=== PATIENT | female | born 1960 | race Caucasian/White ===

== ENCOUNTER → 2023-08-11 19:12 | Outpatient (REF) | payer BC, SELFPAY | LOC: WDC 19:12 | PROVIDERS: ATTENDING PHYSICIAN Family Medicine | DX: Z12.31 Encounter for screening mammogram for malignant neoplasm of breast (principal) | CPT/HCPCS: 77063; 77067 ==

== ENCOUNTER → 2023-11-02 06:50 | Outpatient (REF) | payer BC, SELFPAY ==
[2023-11-02 07:46] LABS: % Basophils 0.5 % (0-2); % Eosinophils 4.1 % (0-6); % Immature Granulocytes 0.5 % (0-0.5); % Lymphocytes 15.5 % (20.5-51.1); % Monocytes 7.2 % (1.7-9.3); % Neutrophils 72.2 % (42.2-75.2); Absolute Eosinophils 0.2 10^3/uL (0-0.7); Absolute Lymphocytes 0.9 10^3/uL (1.2-3.4); Absolute Monocytes 0.4 10^3/uL (0.1-0.6); Absolute Neutrophils 4.2 10^3/uL (1.4-6.5); Hematocrit 32.7 % (37.0-47.0); Hemoglobin 10.8 g/dL (12.0-16.0); Mean Corpuscular Hgb 29.3 pg (27.0-31.0); Mean Corpuscular Volume 88.9 fL (81.0-99.0); Mean Platelet Volume 10.2 fL (7.4-10.4); Nucleated Red Blood Cells % 0 %; Platelet Count 209 10^3/uL (130-400); Red Blood Cell Count 3.68 10^6/uL (4.20-5.40); Red Cell Dist. Width 13.2 % (11.5-14.5); White Blood Cell Count 5.8 10^3/uL (4.8-10.8)
[2023-11-02 09:12] LABS: ALT (SGPT) 30 U/L (0-35); AST (SGOT) 25 U/L (14-36); Albumin 4.1 g/dl (3.5-5.0); Alkaline Phosphatase 97 U/L (38-126); Blood Urea Nitrogen 22 mg/dl (7-17); Carbon Dioxide 30 mmol/L (22-30); Chloride 101 mmol/L (98-107); Glucose 110 mg/dl (70-99); Potassium 3.8 mmol/L (3.5-5.1); Sodium 136 mmol/L (135-145); Total Bilirubin 0.9 mg/dl (0.2-1.3); Total Protein 6.9 g/dl (6.3-8.2); eGFR > 60.00
[2023-11-02 20:02] LABS: CA 125 < 5.5 U/mL (0-35)
== END ==
LOC: REG 06:50
PROVIDERS: ATTENDING PHYSICIAN Obstetrics & Gynecology Gynecologic Oncology
DX: C54.1 Malignant neoplasm of endometrium (principal); C55 Malignant neoplasm of uterus, part unspecified
CPT/HCPCS: 36415; 80053; 85025; 86304

== ENCOUNTER → 2023-11-10 07:32 | Outpatient (REF) | payer BC, SELFPAY | LOC: RAD 07:32 | PROVIDERS: ATTENDING PHYSICIAN Obstetrics & Gynecology Gynecologic Oncology; FAMILY PHYSICIAN Family Medicine | DX: C54.1 Malignant neoplasm of endometrium (principal) | CPT/HCPCS: 71260; 74177; Q9967 ==

== ENCOUNTER 2024-05-23 10:03 | Emergency (ER) | payer BC, SELFPAY ==
[2024-05-23 10:15] VITALS: BP 181/79
[2024-05-23 10:57] VITALS: BP 153/79
[2024-05-23 11:00] VITALS: BP 165/70
[2024-05-23 11:21] LABS: % Basophils 0.3 % (0-2); % Immature Granulocytes 0.3 % (0-0.5); % Lymphocytes 10.5 % (20.5-51.1); % Monocytes 5.6 % (1.7-9.3); % Neutrophils 80.3 % (42.2-75.2); Absolute Eosinophils 0.2 10^3/uL (0-0.7); Absolute Lymphocytes 0.7 10^3/uL (1.2-3.4); Absolute Monocytes 0.4 10^3/uL (0.1-0.6); Absolute Neutrophils 5.3 10^3/uL (1.4-6.5); Hemoglobin 10.4 g/dL (12.0-16.0); Mean Corp Hgb Conc. 31.5 g/dL (33.0-37.0); Mean Corpuscular Hgb 27.9 pg (27.0-31.0); Mean Corpuscular Volume 88.5 fL (81.0-99.0); Mean Platelet Volume 10.1 fL (7.4-10.4); Nucleated Red Blood Cells % 0 %; Platelet Count 201 10^3/uL (130-400); Red Blood Cell Count 3.73 10^6/uL (4.20-5.40); Red Cell Dist. Width 13.5 % (11.5-14.5); White Blood Cell Count 6.6 10^3/uL (4.8-10.8)
--- NOTE | 2024-05-23 11:35 | ED.GENMED ---
History of Present Illness
General
Chief Complaint: Chest Pain
Source: patient
Exam Limitations: none
Time Seen by Provider: 05/23/24 10:59
Nursing documentation reviewed up to this point in time: agreed with
History of Present Illness
History of Present Illness:
63-year-old female with history of HTN, colitis presents for shortness of breath, chest pain and pain in the arm. States 4 days ago while she was laying on her chair at home she developed right upper wall pain right below her clavicle and at the
same time she felt pain down her right arm. She had just eaten fried food so she thought it was indigestion and she took omeprazole with some relief. The right arm pain dissipated over the next 2 days and has not returned. The right upper chest
pain is reproducible with pressing on it.
She states she has had 'breathing problems' for the past 2 weeks the symptoms are similar to her chronic sinusitis with wheezing and she has been using Claritin and nasal spray as usual
States she had one episode of numb feeling left hand the same time the right upper chest pain started but this lasted only a short time that day and none since
Patient denies N/B/D. She has chronic intermittent diarrhea since her gastric bypass in 2016 and this has not changed
She denies dizziness, lightheadedness.
Past History
Past History
ED Past Medical History: HTN, NIDDM and Other (Frequent epistaxis)
ED Past Surgical History: Gynecological, Orthopedic and Other (Gastric bypass 2015)
Social History
Tobacco: Non-smoker
Alcohol: None
Drug: None
Personal: Other (Noncontributory)
Living: with family
Employment: Employed
Family History
Family History: Other
Review of Systems
Review of Systems
Allergies reviewed?: Yes
All Other Systems: ROS reviewed and negative except as documented in HPI and ROS
Constitutional: Denies fever, fatigue or chills
Respiratory: Reports other (Intermittent wheezing for the past 2 weeks she's had in the past and feels is related to her chronic sinusitis); Denies cough or trouble breathing
Cardiac: Reports chest pain (Right upper chest wall pain); Denies diaphoresis or palpitations
ABD/GI: Reports diarrhea (Intermittent since gastric bypass); Denies abdominal pain, nausea, vomiting, bloody stools or black stools
: Denies dysuria, incontinence, difficulty voiding or urgency
Musculoskeletal: Denies edema
Skin: Reports no symptoms
Neurological: Reports no symptoms
Phy Exam
Physical Exam
Physical Exam:
GENERAL: No acute distress. A&Ox3.
CONSTITUTIONAL: Afebrile.
EYES: clear, conjunctivae normal
ENMT: moist mucus membranes, Pharynx nl
RESPIRATORY: Regular respirations, nonlabored, lungs clear.
CARDIOVASCULAR: Regular rate and rhythm, no murmurs, no rubs. R upper chest pain immediately reproducible with pressing on area
GI: Soft, nontender, normal BS
MUSCULOSKELETAL: Moves with ease. Well perfused.
SKIN: Warm, dry, pink
PSYCH: Normal mood and affect. Well kept, interactive and appropriate
NEUROLOGIC: Awake, alert and oriented. No focal neurological deficits
Scores
Heart Score for Chest Pain Patients
STEMI patient?: Not applicable
Course
Orders/Labs/Results
Orders:
Orders
05/23/24 10:04
Electrocardiogram (*1) Urgent
Reason for Study: Chest Pain
EKG- Treatment ONCE
05/23/24 11:00
CR Chest - 2 Views Urgent
Comment:
Reason For Exam: chest pain, SOB
05/23/24 11:13
Complete Blood Count/With Diff Urgent
Comprehensive Metabolic Panel Urgent
NT-proBNP Urgent
Troponin I Urgent
Abnormal Lab Results
05/23/24
11:13
RBC 3.73 L 10^6/uL
(4.20-5.40)
Hgb 10.4 L g/dL
(12.0-16.0)
Hct 33.0 L %
(37.0-47.0)
MCHC 31.5 L g/dL
(33.0-37.0)
Absolute Lymphs (auto) 0.7 L 10^3/uL
(1.2-3.4)
Neutrophils % 80.3 H %
(42.2-75.2)
Lymphocytes % 10.5 L %
(20.5-51.1)
BUN 21 H mg/dl
(7-17)
Glucose 128 H mg/dl
(70-99)
AST 38 H U/L
(14-36)
ALT 36 H U/L
(0-35)
05/23/24 11:13
05/23/24 11:13
Vital Signs
Initial and Last Documented VS:
Initial Vital Signs
Temp Pulse Resp BP Pulse Ox
98.0 F 69 20 181/79 98
05/23/24 10:15 05/23/24 10:15 05/23/24 10:15 05/23/24 10:15 05/23/24 10:15
Last Documented Vital Signs
Temp Pulse Resp BP Pulse Ox
98.0 F 71 20 165/70 97
05/23/24 10:15 05/23/24 12:00 05/23/24 12:00 05/23/24 11:00 05/23/24 12:00
MDM/Problems Addressed
Differential Diagnosis Includes:
GERD, [place], musculoskeletal chest wall pain, CHF
MDM/Problems Addressed:
63-year-old female with history of HTN, colitis presents for shortness of breath, chest pain and pain in the arm. States 4 days ago while she was laying on her chair at home she developed right upper wall pain right below her clavicle and at the
same time she felt pain down her right arm. She had just eaten fried food so she thought it was indigestion and she took omeprazole with some relief. The right arm pain dissipated over the next 2 days and has not returned. The right upper chest
pain is reproducible with pressing on it.
She states she has had 'breathing problems' for the past 2 weeks the symptoms are similar to her chronic sinusitis with wheezing and she has been using Claritin and nasal spray as usual
States she had one episode of numb feeling left hand the same time the right upper chest pain started but this lasted only a short time that day and none since
Patient denies N/B/D. She has chronic intermittent diarrhea since her gastric bypass in 2016 and this has not changed
She denies dizziness, lightheadedness.
Afebrile, NAD
Right upper chest wall pain immediately reproducible with pressing on the area locally
Pt has no risk factors for PE, no indication for PE workup
12:00 p.m.
CBC: No clinically significant abnormality
CMP: No clinically significant abnormality
Troponin WNL
BMP WNL
Chest x-ray radiology report read: NAD
Pt stable for discharge.
Referred to cardiac hotline
Chronic conditions affecting care: HTN
*Critical Care Note
Total Time (30-74mins, 75-104mins- exclusive of procedures): Not Applicable
ED Attending Note
-
Portions of this chart may have been created with voice recognition software.� Occasional wrong word or��sound alike� substitutions may have occurred due to the inherent limitations of voice recognition software.
Discharge Plan
Departure
Patient Disposition: Home (Routine Discharge)
Date of Disposition: 05/23/24
Time of Disposition: 12:02
Patient with high blood pressure during this ER visit?: No
Condition: Good
Discharge Problem:
Atypical chest pain, Seasonal allergies
Instructions: Chest Pain That Is Not Caused by the Heart (DC), Acid Reflux and GERD in Adults (DC), Chest Pain CBC Follow Up
Prescriptions:
No Action
multivitamin 1 EACH tablet
1 ea PO DAILY
omeprazole 40 MG capsule,delayed release(DR/EC)
40 mg PO DAILY PRN (Reason: heartburn)
hydrochlorothiazide 25 MG tablet
25 mg PO DAILY
lisinopril 40 MG tablet
10 mg PO DAILY
temazepam 22.5 MG capsule
22.5 mg PO HS
ergocalciferol (vitamin D2) 50 MCG tablet
50 mcg PO WEEKLY
Citalopram Hydrobromide
40 mg PO DAILY
Loratadine
10 mg PO DAILY
oxymetazoline [Afrin Sinus (oxymetazoline)] 30 SPRAYS/15 ML spray,non-aerosol
2 sprays intranasal Q4HPRN PRN (Reason: Bleeding) Qty: 1 1RF
sodium chloride [Saline Nasal] 50 SPRAYS/45 ML aerosol,spray
2 sprays intranasal QIDPRN PRN (Reason: Dryness) Qty: 1 1RF
Referrals:
Marleen Meneses MD [Family Provider] -
Marleen Daly, OPTICIAN APPRENTICE [Non-Admitting Privileges] - As needed
Alexandre Rodarte MD [Active] - Keep scheduled appt
Activity Restrictions/Additional Instructions:
As we discussed, there is nothing worrisome in your workup here today.
Your anemia is at your baseline.
Someone from the cardiology group will call you in the next day or 2 more thorough cardiac evaluation.
Your lungs are clear, no wheezing at this time, your intermittent wheezing is probably like you said, from your chronic sinusitis/seasonal allergies. Continue your nasal spray, your humidifier and your Claritin daily.
Return here immediately for worsening chest pain, chest pain associated with breaking out in sweat, lightheadedness, shortness of breath, nausea or feeling worse in any way.
Interventions
Interventions:
*Risk Screen - Suicide Last Done: 05/23/24 11:26
*General Assessment Last Done: 05/23/24 12:21
*Neglect/Abuse Screening Last Done: 05/23/24 11:26
ED- Fall Risk Assessment Last Done: 05/23/24 11:26
*ED COVID-19 Vaccine History Last Done: 05/23/24 11:26
*Nursing Disposition Last Done: 05/23/24 12:22
ED- Cardiac Assessment Last Done: 05/23/24 11:26
ED- Pulmonary Assessment Last Done: 05/23/24 11:26
Discharge Date and Time
Discharge Date/Time: 05/23/24 12:23
Print Language: PUERTO RICAN
[2024-05-23 11:39] LABS: ALT (SGPT) 36 U/L (0-35); AST (SGOT) 38 U/L (14-36); Albumin 4.2 g/dl (3.5-5.0); Alkaline Phosphatase 80 U/L (38-126); Blood Urea Nitrogen 21 mg/dl (7-17); Calcium 8.9 mg/dl (8.4-10.2); Carbon Dioxide 30 mmol/L (22-30); Chloride 98 mmol/L (98-107); Glucose 128 mg/dl (70-99); Potassium 3.7 mmol/L (3.5-5.1); Sodium 140 mmol/L (135-145); Total Bilirubin 1.1 mg/dl (0.2-1.3); Total Protein 6.9 g/dl (6.3-8.2); eGFR > 60.00
[2024-05-23 11:48] LABS: NT-proBNP 177 pg/ml; Troponin I < 0.012 ng/ml
== END 2024-05-23 12:23 | disposition home or self-care (01) ==
LOC: EMR 10:03
PROVIDERS: Registered Nurse; EMERGENCY PHYSICIAN Student in an Organized Health Care Education/Training Program; FAMILY PHYSICIAN Family Medicine
DX: J30.2 Other seasonal allergic rhinitis (principal); R07.89 Other chest pain; E11.9 Type 2 diabetes mellitus without complications; I10 Essential (primary) hypertension
CPT/HCPCS: 99284; 71046; 80053; 83880; 84484; 85025; 93005

== ENCOUNTER → 2024-06-20 06:26 | Outpatient (REF) | payer BC, SELFPAY ==
[2024-06-20 07:10] LABS: % Basophils 0.5 % (0-2); % Immature Granulocytes 0.7 % (0-0.5); % Lymphocytes 10.9 % (20.5-51.1); % Monocytes 4.3 % (1.7-9.3); % Neutrophils 81.6 % (42.2-75.2); Absolute Eosinophils 0.2 10^3/uL (0-0.7); Absolute Immature Granulocytes 0.1 10^3/uL (0-0.05); Absolute Lymphocytes 0.8 10^3/uL (1.2-3.4); Absolute Monocytes 0.3 10^3/uL (0.1-0.6); Hematocrit 29.7 % (37.0-47.0); Hemoglobin 9.5 g/dL (12.0-16.0); Mean Corpuscular Hgb 28.1 pg (27.0-31.0); Mean Corpuscular Volume 87.9 fL (81.0-99.0); Nucleated Red Blood Cells % 0 %; Platelet Count 227 10^3/uL (130-400); Red Blood Cell Count 3.38 10^6/uL (4.20-5.40); Red Cell Dist. Width 14.8 % (11.5-14.5); White Blood Cell Count 7.4 10^3/uL (4.8-10.8)
[2024-06-20 08:01] LABS: ALT (SGPT) 24 U/L (0-35); AST (SGOT) 25 U/L (14-36); Albumin 4.3 g/dl (3.5-5.0); Alkaline Phosphatase 97 U/L (38-126); Blood Urea Nitrogen 13 mg/dl (7-17); Calcium 9.1 mg/dl (8.4-10.2); Carbon Dioxide 26 mmol/L (22-30); Chloride 102 mmol/L (98-107); Glucose 121 mg/dl (70-99); HDL Cholesterol 55 mg/dl; LDL Cholesterol, Calculated 80 mg/dl; Sodium 141 mmol/L (135-145); Total Bilirubin 1.1 mg/dl (0.2-1.3); Total Cholesterol 149 mg/dl (50-199); Total Protein 7.2 g/dl (6.3-8.2); Triglyceride 73 mg/dl (10-149); Very Low Density Lipoprotein 14 mg/dl (0-30); eGFR > 60.00
[2024-06-20 08:13] LABS: Potassium 3.7 mmol/L (3.5-5.1)
[2024-06-20 08:32] LABS: TSH Reflex To Free T4 1.68 uIU/ml (0.47-4.68)
[2024-06-20 20:35] LABS: CA 125 < 5.5 U/mL (0-35)
== END ==
LOC: REG 06:26
PROVIDERS: ATTENDING PHYSICIAN Obstetrics & Gynecology Gynecologic Oncology; FAMILY PHYSICIAN Family Medicine
DX: D50.9 Iron deficiency anemia, unspecified (principal); D64.9 Anemia, unspecified; E53.8 Deficiency of other specified B group vitamins; I10 Essential (primary) hypertension; E66.01 Morbid (severe) obesity due to excess calories; E78.00 Pure hypercholesterolemia, unspecified; D50.8 Other iron deficiency anemias
CPT/HCPCS: 36415; 80053; 80061; 84443; 85025; 86304

== ENCOUNTER → 2025-01-09 06:21 | Outpatient (REF) | payer BC, SELFPAY ==
[2025-01-09 07:43] LABS: Hematocrit 29.3 % (37.0-47.0); Hemoglobin 8.9 g/dL (12.0-16.0); Mean Corp Hgb Conc. 30.4 g/dL (33.0-37.0); Mean Corpuscular Volume 78.3 fL (81.0-99.0); Nucleated Red Blood Cells % 0 %; Platelet Count 269 10^3/uL (130-400); Red Cell Dist. Width 16.1 % (11.5-14.5)
[2025-01-09 08:47] LABS: ALT (SGPT) 18 U/L (0-35); AST (SGOT) 16 U/L (14-36); Albumin 4.3 g/dl (3.5-5.0); Alkaline Phosphatase 96 U/L (38-126); Blood Urea Nitrogen 17 mg/dl (7-17); Calcium 9.1 mg/dl (8.4-10.2); Carbon Dioxide 26 mmol/L (22-30); Chloride 105 mmol/L (98-107); Glucose 102 mg/dl (70-99); Potassium 3.4 mmol/L (3.5-5.1); Sodium 140 mmol/L (135-145); Total Protein 7.3 g/dl (6.3-8.2); eGFR > 60.00
[2025-01-09 18:46] LABS: CA 125 < 5.5 U/mL (0-35)
== END ==
LOC: REG 06:21
PROVIDERS: ATTENDING PHYSICIAN Physician Assistant Surgical; FAMILY PHYSICIAN Family Medicine
DX: D50.9 Iron deficiency anemia, unspecified (principal); D64.9 Anemia, unspecified; E53.8 Deficiency of other specified B group vitamins; C54.1 Malignant neoplasm of endometrium
CPT/HCPCS: 36415; 80053; 85025; 86304

== ENCOUNTER → 2025-01-11 13:21 | Outpatient (REF) | payer BC, SELFPAY ==
[2025-01-11 14:24] LABS: Hematocrit 28.1 % (37.0-47.0); Hemoglobin 8.5 g/dL (12.0-16.0); Mean Corp Hgb Conc. 30.2 g/dL (33.0-37.0); Mean Corpuscular Volume 78.7 fL (81.0-99.0); Nucleated Red Blood Cells % 0 %; Platelet Count 224 10^3/uL (130-400); Red Cell Dist. Width 15.9 % (11.5-14.5)
[2025-01-11 15:52] LABS: Iron 32 ug/dl (37-170)
[2025-01-11 16:03] LABS: Total Iron Binding Capacity 434 ug/dl (265-497)
[2025-01-11 16:22] LABS: Ferritin 5.6 ng/ml (11.1-264.0)
[2025-01-11 16:53] LABS: Folate 6.7 ng/ml (2.76-20); Vitamin B12 291 pg/ml (239-931)
== END ==
LOC: REG 13:21
PROVIDERS: ATTENDING PHYSICIAN Obstetrics & Gynecology Gynecologic Oncology; FAMILY PHYSICIAN Family Medicine; OTHER PHYSICIAN Internal Medicine Hematology & Oncology
DX: C54.1 Malignant neoplasm of endometrium (principal); D50.9 Iron deficiency anemia, unspecified; D64.9 Anemia, unspecified; E53.8 Deficiency of other specified B group vitamins
CPT/HCPCS: 36415; 82607; 82728; 82746; 83540; 83550; 85025

== ENCOUNTER 2025-01-20 20:21 | Inpatient (IN) | payer BC, SELFPAY ==
[2025-01-20 20:24] VITALS: BP 123/50
[2025-01-20 20:56] VITALS: BMI 41.7
[2025-01-20 20:58] LABS: Hematocrit 23.1 % (37.0-47.0); Hemoglobin 7.0 g/dL (12.0-16.0); Mean Corp Hgb Conc. 30.3 g/dL (33.0-37.0); Mean Corpuscular Volume 78.3 fL (81.0-99.0); Nucleated Red Blood Cells % 0 %; Platelet Count 280 10^3/uL (130-400); Red Cell Dist. Width 16.0 % (11.5-14.5)
[2025-01-20 21:00] VITALS: BP 110/70
[2025-01-20 21:12] LABS: ALT (SGPT) 17 U/L (0-35); AST (SGOT) 16 U/L (14-36); Albumin 3.6 g/dl (3.5-5.0); Alkaline Phosphatase 87 U/L (38-126); Blood Urea Nitrogen 22 mg/dl (7-17); Calcium 8.3 mg/dl (8.4-10.2); Carbon Dioxide 22 mmol/L (22-30); Chloride 106 mmol/L (98-107); Estimated Creatinine Clearance 87 ml/min; Glucose 228 mg/dl (70-99); Potassium 3.5 mmol/L (3.5-5.1); Sodium 134 mmol/L (135-145); Total Protein 6.2 g/dl (6.3-8.2); eGFR > 60.00
[2025-01-20 21:21] LABS: Troponin I < 0.012 ng/ml
[2025-01-20] MEDS: NSS 500 IV (21:25)
[2025-01-20 21:45] VITALS: BP 116/44
[2025-01-20 22:30] VITALS: BP 125/65
--- NOTE | 2025-01-20 22:36 | ED.GENMED ---
History of Present Illness
General
Chief Complaint: Fainting/Passed Out
Source: patient
Time Seen by Provider: 01/20/25 20:22
History of Present Illness
History of Present Illness:
Note:
CHIEF COMPLAINT(S)
Recurrent nosebleeds and black stools.
HISTORY OF PRESENT ILLNESS
The patient is a 64-year-old female who presented with recurrent nosebleeds that began around 2:00 PM today and have persisted since. She suspects that the nosebleeds might be related to her iron levels, as she experiences worsened bleeding when her
iron is high due to dietary intake. The patient has a history of nasal septum destruction attributed to chemical exposure and allergies, not drug use. She reported that due to the destruction of the septum, she has severe nosebleeds that are
difficult to control, with this episode being particularly severe.
The nosebleeds started while she was working and resulted in throwing up blood and black stools, indicating possible swallowed blood. The patient describes feeling lightheaded afterward. She mentioned recent lab results indicating low hemoglobin
(8.4 g/dL previously; now suspected to be lower), and she has a history of iron deficiency.
During the episode, she became dizzy, fell, and injured her left knee, which is artificial. This fall exacerbated her knee pain. The patient mentioned having had a femur replacement in the past due to a significant fall on the same knee. There is
concern for further injury, though further imaging is needed to evaluate the knee.
ADDITIONAL HISTORY OBTAINED FROM SOURCES OTHER THAN THE PATIENT
no pre-hospital care interventions such as CPR were initiated. The patient was discovered after approximately 40 minutes by a passerby, at which point she was conscious but too weak to rise due to her knee injury.
CHRONIC MEDICAL CONDITIONS SIGNIFICANTLY AFFECTING CARE
The patient has a history of iron deficiency. Hematological management is important due to recurrent bleeding and low hemoglobin levels. She also has an artificial left knee that has required surgical intervention previously, influencing her
mobility and raising suspicion for additional musculoskeletal injury.
PHYSICAL EXAM
General: The patient is alert but appears in mild distress due to pain and fatigue.
Skin: Warm, dry, with visible pallor associated with possible anemia.
Neck: Supple, trachea midline.
Eye Ears, nose, mouth, and throat: Oral mucosa appears pale, likely correlating with low hemoglobin. Evidence of nasal bleeding is present.
Cardiovascular: Normal peripheral perfusion, No edema.
Respiratory: Respirations are non-labored.
Gastrointestinal: Abdomen nondistended.
Back: Normal range of motion, Normal alignment.
Musculoskeletal: Moderate swelling and tenderness in the left knee, limited range of motion due to pain.
Neurological: Alert and oriented to person, place, time, and situation, No focal neurological deficit observed.
Psychiatric: Cooperative, appropriate mood & affect, although slightly anxious over her current health conditions.
PROBLEM LIST
Acute:
- Severe recurrent epistaxis
- Black stools secondary to nasal bleeding
- Severe left knee pain post-fall
Chronic:
- Iron deficiency anemia
PLAN
1. manage low hemoglobin and recurrent blood loss.
2. Orthopedic evaluation of the left knee, considering recent fall and history of femur replacement, including possible imaging (e.g., X-ray, MRI).
3. ENT follow-up to assess and potentially intervene in structural nasal issues contributing to severe nosebleeds, if possible.
4. Monitor hemoglobin levels and manage with appropriate iron supplementation and transfusion if necessary.
5. Pain management for knee injury.
DIFFERENTIAL DIAGNOSIS
The Differential Diagnosis includes, in no particular order and is not limited to:
1. Iron deficiency anemia
2. Hemophilia or other bleeding disorders
3. Nasal carcinoma
4. Platelet dysfunction
5. Peptic ulcer disease
6. Arteriovenous malformation
7. Autoimmune disorders
8. Epistaxis secondary to environmental exposure
9. Coagulopathy due to medication or systemic disease
10. Vascular issues related to artificial knee placement
EKG
My independent EKG interpretation is:
- Rhythm: Normal sinus rhythm
- Heart Rate: 68 bpm
- [place]: Normal
- Notable Intervals: Normal (no specific intervals noted as abnormal)
- Abnormalities Observed: No acute ischemic changes
Disposition:
SUMMARY OF ENCOUNTER
The patient is a 64-year-old female who presented to the emergency department following a syncopal event in the hospital bathroom. She has a history of recurrent severe nosebleeds, with the current episode starting at 2:00 PM. The patients
hemoglobin has dropped from 8.5 g/dL to 7 g/dL over the past week. Although hemodynamically stable, there is concern for further hemoglobin decrease, warranting serial measurements. An ENT consultation is suggested to evaluate the recurrent
nosebleeds. Knee imaging was performed due to a recent fall, showing no acute fractures. EKG is normal, and fluids were administered. A blood transfusion has been held off until repeat hemoglobin evaluations are completed.
DISPOSITION
Admit
ASSESSMENT
The patient is experiencing recurrent severe epistaxis likely due to nasal septum destruction and chronic iron deficiency anemia, further exacerbated by recent nosebleeds. The hemoglobin drop indicates continued blood loss. Serial monitoring and
potential ENT intervention are needed. The recent fall raised concerns for possible injuries, but imaging ruled out acute knee fractures.
PLAN
1. Monitor hemoglobin levels closely with serial measurements.
2. Consult with ENT for evaluation and management of recurrent nosebleeds.
3. Continue IV fluid administration as necessary to maintain hemodynamic stability.
4. Hold blood transfusion unless hemoglobin drops further or symptoms worsen.
5. Ensure patient safety precautions, considering recent syncopal episode and fall history.
INDEPENDENT REVIEW OF LABS AND INTERPRETATION OF TESTS
My independent review of CBC shows a hemoglobin level drop to 7 g/dL, indicating significant ongoing blood loss. My independent EKG interpretation is normal, confirming no acute ischemic changes.
MEDICAL DECISION MAKING
- Number and Complexity of Problems Addressed: Chronic conditions affecting care including iron deficiency anemia and recurrent epistaxis due to nasal septum destruction.
- Data:
- Category 1: Knee imaging reviewed with no acute fractures noted.
- Category 2: Clinical information obtained from ED records and lack of intervention before the emergency department visit.
- Category 3: Consideration for ENT consultation to manage severe recurrent nosebleeds.
- Risk: High risk due to significant drop in hemoglobin and ongoing severe epistaxis. Admission for observation is justified to manage potential complications due to further hemoglobin decrease and to facilitate ENT assessment.
DIAGNOSIS
1. Chronic iron deficiency anemia (ICD-10: D50.9)
2. Recurrent severe epistaxis (ICD-10: R04.0)
3. Fall with knee injury, no acute fracture (ICD-10: R29.6)
2322 update hemoglobin dropped to 6.2 will transfuse with 2 units of packed red blood cells. no further bleeding noted from the nose
Past History
Past History
ED Past Medical History: HTN, NIDDM and Other (Frequent epistaxis)
ED Past Surgical History: Gynecological, Orthopedic and Other (Gastric bypass 2015)
Social History
Tobacco: Non-smoker
Alcohol: None
Drug: None
Personal: Other (Noncontributory)
Living: with family
Employment: Employed
Family History
Family History: Other
Phy Exam
Physical Exam
Physical Exam:
.
Course
Orders/Labs/Results
Orders:
Orders
01/20/25 20:22
Electrocardiogram (*1) Urgent
Reason for Study: Chest Pain
Cardiac Monitoring- Treatment ONCE
EKG- Treatment ONCE
IV Insert/Care/Rem.- Treatment PRN
O2 Therapy [RESP] Urgent
Titrate/Wean O2 to maintain O2 sat greater than (%): 90
Special Instructions: Maintain sats >/=90%
Pulse Ox/spot Check [RESP] Urgent
Quantity: 1
Special Instructions: ON ROOM AIR
01/20/25 20:47
Type And Crossmatch [Type+Screen] Urgent
Complete Blood Count/With Diff Urgent
Comprehensive Metabolic Panel Urgent
Troponin I Urgent
01/20/25 21:17
0.9% Sodium Chloride 500 ml [Nss] 500 ml IV BOLUS
Knee, Left 4 or More Views [CR Knee - Left 4 Or More View*] Urgent
Comment:
Reason For Exam: fall
01/20/25 22:59
Pantoprazole [Protonix IV] 80 mg IV NOW STA
01/20/25 23:04
HGB [Hemoglobin] Urgent
01/20/25 23:21
* Blood Bank Products Urgent
Blood Bank Products: *Packed RBC Leuko(PRBC's)
Quantity: 2
Transfuse Today: Yes
Reason: Anemia
01/20/25 23:40
Admit/Transfer Patient As Directed
Co-Sign Provider:
Level of Care: Inpatient admission
Assign to:: Telemetry
Physician / Group: Beau
Diagnosis: Epistaxis
Reason for Telemetry: Other
Other Reason for Telemetry: bleeding
Date to Stop Telemetry: 01/22/25
Time to Stop Telemetry: 11:00
Reason for Hospitalization: symptomatic anemia
Expected length of stay greater than two midnights?: Yes
ELOS- Estimated Length of Stay in days: 2
I certify the patient meets the requirements for IP care: Yes
PRN Pain Medication Management As Directed
May give lesser potent ordered pain med per pt: Yes
preference::
Protocol:: Medication orders for pain may be administered in a
manner that supports deferring to patient preference
when the pt is:
- Requesting an ordered lesser potent pain medication.
Least to most potent pain medications are defined
as: acetaminophen < NSAID < tramadol < opioids
(morphine, oxycodone, hydromorphone).
- Requesting a lesser dose of the same medication IF
ORDERED.
- Requesting a less intrusive route of administration
if both routes are prescribed by the provider (PO <
IV).
01/20/25 23:41
Code Status As Directed
Resuscitation Status: Full Code
01/21/25 00:19
Acetaminophen [Tylenol] 1,000 mg PO NOW STA
Ondansetron Injectable [Zofran] 4 mg IV NOW STA
01/21/25 01:00
Flush (0.9% Sodium Chloride) [Flush (Nss)] See Dose Instructions IV PER PROTOCOL
01/21/25 01:11
Lactated Ringers [Lr] 1,000 ml IV 75 mls/hr
Ondansetron Injectable [Zofran] 4 mg IV Q6HPRN PRN
Oxymetazoline HCl [Afrin Nasal [place]] 2 sprays NASAL Q4HPRN PRN Bleeding
Saline Mist 2 drops NASAL QIDPRN PRN Dryness
01/21/25 01:11
Activity As Directed
Activity Level: With Assistance
INT (Intravenous Needle Therapy) As Directed
Comment: Place 2 IV catheters of the largest bore possible until stable
Orthostatic Vital Signs As Directed
Orthostatic VS Frequency: Daily
Orthostatic Vital Signs As Directed
Orthostatic VS Frequency: Now
Comment: then every four hours for twenty-four hours
Pneumatic Compression Sleeves As Directed
Type: Knee high
Vital Signs As Directed
Frequency: Per unit guidelines
DX Deep Vein Thrombosis Video Routine
01/21/25 Breakfast
NPO
Allow oral meds: Yes
Allow clear liquids: Sips of Clears
Basic Metabolic Panel IN AM
Complete Blood Count/No Diff IN AM
Iron IN AM
Total Iron Binding IN AM
01/21/25 08:00
Pantoprazole [Protonix IV] 40 mg IV BID
01/21/25 14:00
H&H Q8H
01/21/25 22:00
H&H Q8H
Temazepam [Restoril] 22.5 mg PO HS
01/22/25 11:00
DC Protocol for Telemetry ONCE
Abnormal Lab Results
01/20/25 01/20/25
20:47 23:04
WBC 13.4 H 10^3/uL
(4.8-10.8)
RBC 2.95 L 10^6/uL
(4.20-5.40)
Hgb 7.0 L g/dL 6.2 L* g/dL
(12.0-16.0) (12.0-16.0)
Hct 23.1 L %
(37.0-47.0)
MCV 78.3 L fL
(81.0-99.0)
MCH 23.7 L pg
(27.0-31.0)
MCHC 30.3 L g/dL
(33.0-37.0)
RDW 16.0 H %
(11.5-14.5)
MPV 10.5 H fL
(7.4-10.4)
Abs Immat Gran (auto) 0.1 H 10^3/uL
(0-0.05)
Absolute Neuts (auto) 10.8 H 10^3/uL
(1.4-6.5)
Absolute Monos (auto) 0.7 H 10^3/uL
(0.1-0.6)
Immature Gran % 0.9 H %
(0-0.5)
Neutrophils % 80.6 H %
(42.2-75.2)
Lymphocytes % 11.5 L %
(20.5-51.1)
Sodium 134 L mmol/L
(135-145)
BUN 22 H mg/dl
(7-17)
Glucose 228 H mg/dl
(70-99)
Calcium 8.3 L mg/dl
(8.4-10.2)
Total Protein 6.2 L g/dl
(6.3-8.2)
Crossmatch IS Only See Detail
01/20/25 23:04
01/20/25 20:47
Vital Signs
Initial and Last Documented VS:
Initial Vital Signs
Temp Pulse Resp Pulse Ox
97.9 F 68 18 95
01/20/25 20:22 01/20/25 20:22 01/20/25 20:22 01/20/25 20:22
Last Documented Vital Signs
Temp Pulse Resp BP Pulse Ox
97.7 F 69 16 131/60 95
01/21/25 01:48 01/21/25 01:48 01/21/25 01:48 01/21/25 01:48 01/21/25 01:48
*Pulse Oximetry
SaO2: 95
Oxygen Mode of Delivery: Room air
Patient hypoxic: no
*Equipment Maintenance Superintendent Interpretation
Rate: normal
Interpretation: normal
Rhythm: sinus
*Critical Care Note
Total Time (30-74mins, 75-104mins- exclusive of procedures): 35 minutes
ED Attending Note
-
Portions of this chart may have been created with voice recognition software.� Occasional wrong word or��sound alike� substitutions may have occurred due to the inherent limitations of voice recognition software.
Discharge Plan
Departure
Patient Disposition: Admit
Date of Disposition: 01/20/25
Time of Disposition: 22:36
Admit to: Telemetry
Presentation/result/management discussed w/ accepting MD/DO: Hospitalist
Discharge Problem:
Symptomatic anemia, Epistaxis, Syncope
Interventions
Interventions:
*Risk Screen - Suicide Last Done: 01/20/25 20:22
*General Assessment Last Done: 01/21/25 00:35
*Neglect/Abuse Screening Last Done: 01/20/25 20:22
*ED- Fall Risk Assessment Last Done: 01/21/25 00:35
*ED COVID-19 Vaccine History Last Done: 01/21/25 00:35
*Nursing Disposition Last Done: 01/21/25 00:35
ED- Cardiac Assessment Last Done: 01/20/25 20:58
ED- Neurological Assessment Last Done: 01/20/25 20:58
[2025-01-20] MEDS: PROTONIX IV 80 MG IV (23:04)
[2025-01-20 23:15] VITALS: BP 113/57
[2025-01-20 23:21] LABS: Hemoglobin 6.2 g/dL (12.0-16.0)
--- NOTE | 2025-01-20 23:30 | HPS.HSE ---
Family Physician
-
Family Physician: Marleen Meneses
Chief Complaint
-
Syncope
History of Present Illness
This is a 64-year-old with past medical history significant for hypertension, hyperlipidemia, GERD, depression, history of uterine cancer status post XRT chemo and surgery, status post gastric bypass who presents to the emergency department
following a syncopal episode.
Patient reported that she started having recurrent nosebleeds that began around 2 PM today and has persisted since. She reports that she has had history of nosebleeds associated with high dietary iron intake. She has a history of nasal septum
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 She is not on any blood thinners. Due to excessive nosebleed the patient was swallowing and also throwing up blood. She said that she has had black stools. She
reports dizziness and lightheadedness. She reports that she did fall and injured her knee. She was discovered at approximately 40 minutes after a fall by passerby. She reports that she was conscious but was too weak to get up due to knee injury.
She reports longstanding history of iron deficiency and anemia but denies any prior history of GI bleed. She reports that she has been on dietary iron supplementation but no oral iron supplementation. She was being followed for anemia and plans
for iron infusion prior to this episode of epistaxis and presyncopal.
In the emergency department initial blood pressure was 120/60 with a pulse of 71 and she was satting 98% on room air. Temp was nine 7.9.
White count was 7.4, hemoglobin was 7.0 (baseline was 9). Repeat hemoglobin was 6.2 with a platelet count of 280. Electrolytes were all normal.
Medical History
Past Medical History
Past Medical History: Reports Other
Additional Past Medical History:
Type 2 diabetes
Hyperlipidemia
Depression
GERD
Hypertension
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
Past Surgical History: Reports Other
Additional Past Surgical History:
Hysterectomy
Left knee replacement
Left femoral surgery
Gastric bypass
Robotic LAVH/BSO/LNS omental bx
Social History
Tobacco: Non-smoker
Alcohol: None
Drug: None
Family History
Family History: Not pertinent
Allergies / Home Medications
Allergies reflects when Allergies were last updated in [facility].
Home Medications with original date entered in [facility]
Allergy/Medication List:
Allergies
Allergy/AdvReac Type Severity Reaction Status Date / Time
'Kevin inhaler' Allergy NOSE BLEED Uncoded 01/20/25 20:21
Home Medications
Citalopram Hydrobromide 40 mg PO DAILY Depression 12/21/21
Loratadine 10 mg PO DAILY Allergies 12/21/21
ergocalciferol (vitamin D2) 50 mcg (2,000 unit) tablet 50 mcg PO WEEKLY Supplement 12/21/21
hydrochlorothiazide 25 mg tablet 25 mg PO DAILY Fluid retention/Swelling 12/21/21
lisinopril 40 mg tablet 10 mg PO DAILY Blood pressure 12/21/21
multivitamin 1 ea PO DAILY Supplement 12/21/21
omeprazole 40 mg capsule,delayed release 40 mg PO DAILY PRN heartburn 12/21/21
temazepam 22.5 mg capsule 22.5 mg PO HS Sleep 12/21/21
oxymetazoline 0.05 % nasal spray (Afrin Sinus (oxymetazoline)) 2 sprays intranasal Q4HPRN PRN Bleeding ##1 12/22/21
sodium chloride 0.65 % nasal spray aerosol (Saline Nasal) 2 sprays intranasal QIDPRN PRN Dryness ##1 12/22/21
Review of Systems
-
History Source: Patient
Constitutional: Reports No Symptoms
EENT: Reports Other (epistaxis)
Respiratory: Reports No Symptoms
Cardiac: Reports No Symptoms
Abdomen/GI: Reports No Symptoms
: Reports No Symptoms
Musculoskeletal: Reports No Symptoms
Skin: Reports No Symptoms
Neurological: Reports No Symptoms
Endocrine: Reports No Symptoms
Hematologic/Lymphatic: Reports No Symptoms
Psych: Reports No Symptoms
Physical Exam
Vital Signs
Vital Signs
Temp Pulse Resp BP Pulse Ox
97.9 F 71 15 125/65 98
01/20/25 20:22 01/20/25 22:45 01/20/25 22:45 01/20/25 22:30 01/20/25 22:45
Physical Exam
General: Well Developed, Well Nourished and No Apparent Distress
HEENT: NormoCephalic, Moist mucous membranes and Atraumatic
Respiratory: Clear
Cardiac: S1/S2 and Regular Rhythm; No Murmur or Rub
GI: Soft, Non Tender, Non Distended and Normal Bowel Sounds; No Organomegaly
Rectal: Black and Hem Positive
Musculoskeletal: No Clubbing, No Cyanosis and No Edema
Skin: No Rash
Neuro: Nonfocal/grossly intact
Laboratory Results
-
01/20/25 23:04
01/20/25 20:47
Laboratory Results
Total Bilirubin 0.6 mg/dl (0.2-1.3) 01/20/25 20:47
AST 16 U/L (14-36) 01/20/25 20:47
ALT 17 U/L (0-35) 01/20/25 20:47
Alkaline Phosphatase 87 U/L (38-126) 01/20/25 20:47
Troponin I < 0.012 ng/ml 01/20/25 20:47
Data Reviewed
-
Medical Tests (Nuc Med, Echo, EKG etc): Image Personally Visualized and interpreted
Lab Data: Labs Reviewed by me
Old Records: Reviewed
Impression/Plan
-
IMPRESSION:
Symptomatic epistaxis versus upper GI bleed. Hgb 6.2. HD stable. No thinners. While blood likely from epistaxis, cannot rule out GI bleed. Denies any abdominal pain but reported blood emesis suspect due to ingestion of blood. Heme + black
stool. Denies prior history of GI bleed. # Chronic anemia now has acute on chronic episode of symptomatic anemia. She did have a nosebleed for several hours prior to coming to the emergency department and likely drop in hemoglobin could be
secondary to the epistaxis.
PLAN:
Epistaxis/GI bleed - Nasal hemostasis achieved. Cannot rule out GI bleed.
- admit to telemetry
- npo for now
- PPI IV bid
- trend H&H q 8 hours, goal Hgb > 7
- Nasal sprays
- ENT consultation if recurrent nose bleed, patient reports that in the past she has been told that there is no available treatment for epistaxis.
- iron panel, consider IV iron supplementation if low
- holding lisinopril and hctz for now
- continue amlodipine
DVT PPX - SCD
Code status - Full cde
[2025-01-21] VITALS (15 sets, daily range): BP systolic 104–162; BP diastolic 57–89; PULSE 70–95; BMI 42.0
[2025-01-21] MEDS: TYLENOL 1000 MG PO (01:18)
[2025-01-21] MEDS: LR 1000 IV (03:58)
--- NOTE | 2025-01-21 05:01 | PTCARENOTE ---
Patient arrive on stretcher [facility] the help of a walker. Patient complained of pain in her left knee. No other complaint at this time voiced by the patient.
--- NOTE | 2025-01-21 06:38 | PTCARENOTE ---
after first unit of blood patient's BP increase to the 160's systolic. informed the RADIOLOGIC TECHNOLOGIST who told me to hold the fluid and to proceed in giving the second unit of RBC scheduled. After 2nd unit BP of the patient 140's Systolic.
[2025-01-21 06:53] LABS: Hematocrit 25.1 % (37.0-47.0); Hemoglobin 8.1 g/dL (12.0-16.0); Mean Corp Hgb Conc. 32.3 g/dL (33.0-37.0); Mean Corpuscular Volume 80.2 fL (81.0-99.0); Platelet Count 168 10^3/uL (130-400); Red Cell Dist. Width 16.8 % (11.5-14.5)
[2025-01-21 06:55] LABS: Blood Urea Nitrogen 23 mg/dl (7-17); Calcium 8.5 mg/dl (8.4-10.2); Carbon Dioxide 27 mmol/L (22-30); Chloride 104 mmol/L (98-107); Estimated Creatinine Clearance 102 ml/min; Glucose 168 mg/dl (70-99); Iron 63 ug/dl (37-170); Potassium 4.2 mmol/L (3.5-5.1); Sodium 135 mmol/L (135-145); eGFR > 60.00
[2025-01-21 07:04] LABS: Total Iron Binding Capacity 385 ug/dl (265-497)
--- NOTE | 2025-01-21 07:16 | W.PN.HOSP.TC ---
Addendum entered and electronically signed by Emily Cobb MD 01/21/25 16:28:
I saw and evaluated the patient independently. I reviewed the resident�s note and agree with findings and plan as documented by Dr. Perez.
GENERAL: well developed, well nourished, female in no apparent distress--pale appearing
HEENT: NC/AT
HEART: regular rate and rhythm, +S1, +S2
LUNGS : clear to auscultation bilaterally
ABDOM: soft, nontender, nondistended, + bowel sounds
EXT: no cyanosis, clubbing, or edema
NEUROLOGIC: grossly intact
Acute Symptomatic Anemia due to Epistaxis with Chronic Anemia--had nosebleed with swallowed blood--heme + but not worrisome, actually expected--s/p 2 units pRBC--will give 1 dose of IV iron--keep HGB > 7--if has another nosebleed, then consult
ENT--Continue PPI IV BID
Knee Pain S/p Fall due to syncope from symptomatic anemia--no fracture noted on x-ray--consult ortho, they want CT scan--Ordered PRN tylenol for Pain and Diclofenac Gel.
Essential Hypertension--Continue home meds as able
Hyperlipidemia--diet controlled?
Gastroesophageal Reflux Disease--Continue IV Pantoprazole
Depression--cont citalapram
History of Uterine Cancer s/p Chemo and Surgery--Encouraged follow up as needed
DVT proph
code status-- full code
Original Note:
Today's Communication/Plan
-
CT scan of left lower extremity today
Likely D/c tomorrow
Assessment / Plan
Assessment / Plan
Assessment:
This is a 64 y/o female with PMHX of frequent nose bleeds, left knee replacement, left hip replacement who presented to the ED on 01/20/2025 following a syncopal episode due to acute symptomatic anemia due to recurrent epistaxis and chronic anemia
(at baseline).
Plan:
Acute Symptomatic Anemia due to Epistaxis with Chronic Anemia
-Patient has not had a recurrence of her nosebleeds since yesterday prior to the ED.
-Stool Heme + likely due to swallowed blood
-S/p two units of leukocyte-reduced RBCs
-Continue PPI IV BID
-Continue to trend hemoglobin and hematocrit with goal to keep hemoglobin >7
-Ordered Ferric Gluconate Infusion
-Ordered Lactated Ringer�s IV fluids
-Continue home medications and home application of vaseline to nasal passages
-Consider ENT referral if patient experiences another episode
Knee Pain S/p Fall
-Fall secondary to Acute Symptomatic Anemia (See above)
-X-ray demonstrated moderate join effusion and soft tissue edema
-Ordered PRN tylenol for Pain and Diclofenac Gel.
-Consulted Orthopedics. Will appreciate their insight into her case
-Ordered CT scan left lower extremity to evaluate for fracture
Essential Hypertension
-Continue home meds on discharge
Hyperlipidemia
-Continue home meds on discharge
Gastroesophageal Reflux Disease
-Continue IV Pantoprazole
Depression
-Continue home meds on discharge
History of Uterine Cancer s/p Chemo and Surgery
-Encouraged follow up as needed
Anticipated Discharge: Within 24 hours
Subjective/Interval History
-
Date of Service: January 21, 2025
Today she reports she is doing well, though still has pain in her left knee. She informed me the last time this happened to her she had broken her left hip, and now has an artificial hip. She denies any recurrence of nosebleeds since prior to her
visit to the ED yesterday. She has been using ice on her knee with some relief in her pain. She states she doesn�t want to take stronger oral or IV pain medications, but would be willing to try topical pain relief methods.
She states that for her nosebleeds she normally uses Vaseline, nasal gels and nasal sprays. She does not have any personal family history of nose bleeds.
Objective Data
-
Labs:
Laboratory Results
01/20/25 01/20/25 01/21/25
20:47 23:04 06:15
WBC 13.4 H 10.7
Hgb 7.0 L 6.2 L* 8.1 L D
Hct 23.1 L 25.1 L
Plt Count 280 168 D
Sodium 134 L 135
Potassium 3.5 4.2
Chloride 106 104
Carbon Dioxide 22 27
BUN 22 H 23 H
Creatinine 0.7 0.6
Glucose 228 H 168 H
Calcium 8.3 L 8.5
Total Bilirubin 0.6
AST 16
ALT 17
Alkaline Phosphatase 87
01/21/25 01/21/25
14:00 22:00
WBC
Hgb Pending Pending
Hct Pending Pending
Plt Count
Sodium
Potassium
Chloride
Carbon Dioxide
BUN
Creatinine
Glucose
Calcium
Total Bilirubin
AST
ALT
Alkaline Phosphatase
Vital Signs:
Vital Signs
Temp Pulse Resp BP Pulse Ox
98 F 69 16 144/87 98
01/21/25 06:23 01/21/25 06:23 01/21/25 06:23 01/21/25 06:23 01/21/25 06:23
I&O
01/20/25 01/21/25 01/22/25
06:59 06:59 06:59
Intake Total 1000 / 1000
Balance 1000 / 1000
Review of Systems
-
History Source: Patient
EENT: Reports Bloody Nose (No recurrence since yesterday, chronic condition)
Respiratory: Denies Cough, Trouble Breathing or Wheezing
Cardiac: Denies Chest Pain or Palpitations
Abdomen/GI: Reports Black Stools; Denies Abdominal Pain, Nausea, Vomiting, Diarrhea, Constipated or Hematemesis
Musculoskeletal: Reports Joint Pain (Right knee, due to fall), Joint Swelling (Right knee, due to fall), Muscle Pain (Right knee area, due to fall) and Muscle Stiffness (Right knee, due to fall)
Neuro: Denies Dizzy, Headache, Weakness, Numbness, Ataxia, Tremors or Lightheadedness
Physical Exam
-
General: Well Developed, Well Nourished, No Apparent Distress, Comfortable and Morbidly Obese
HEENT: Normocephalic and Atraumatic
Respiratory: Clear to Auscultation
Cardiac: Regular Rhythm and S1/S2
GI: Soft, Nontender and Normal Bowel Sounds
Musculoskeletal: Edema, Left Lower Extrem (Overlying the knee with associated erythema. The skin is cold due to ice packs.)
Skin: Warm and Dry
Neuro: Awake, Alert and Oriented
Psych: Calm and Intact Judgement/Insight
[2025-01-21] MEDS: PROTONIX IV 40 MG IV ×2 (08:53→21:14)
--- NOTE | 2025-01-21 12:58 | CM ---
Chart reviewed and behavioral health case manager met with patient and patient lives alone her spouse about 2 years ago, patient lives in a one story home, no steps to enter, patient is independent with adl's and ambulation, no dme, patient drives,
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
PCP: Marleen Meneses
Pharmacy: [facility] in [place]
[2025-01-21 14:08] LABS: Hematocrit 25.5 % (37.0-47.0); Hemoglobin 8.3 g/dL (12.0-16.0)
[2025-01-21] MEDS: TYLENOL 650 MG PO (14:13)
[2025-01-21] MEDS: FERRLECIT 110 MG IV (15:30)
[2025-01-21] MEDS: LR IV (15:59)
[2025-01-21] MEDS: MORPHINE SULFATE 1 MG IV (21:15)
[2025-01-21] MEDS: RESTORIL 22.5 MG PO (21:17)
[2025-01-21 23:20] LABS: Hematocrit 22.4 % (37.0-47.0); Hemoglobin 7.5 g/dL (12.0-16.0)
[2025-01-22] VITALS (14 sets, daily range): BP systolic 107–155; BP diastolic 52–79; PULSE 69–86
[2025-01-22] MEDS: LR IV (03:27)
[2025-01-22] MEDS: MORPHINE SULFATE 1 MG IV (05:26)
--- NOTE | 2025-01-22 06:15 | PTCARENOTE ---
AAO x 3. VSS. Patient complains of 10/10 left knee pain. PRN IV morphine 1 mg administered x 2 and effective, per patient. Patient with large, bloody bowel movement x 2. Provider notified. Trending hemoglobin. OOB x 1 assist to bedside commode. Bed
in lowest position. All patient needs met. Call bob and personal belongings within reach.
[2025-01-22 06:19] LABS: Hematocrit 24.0 % (37.0-47.0); Hemoglobin 7.6 g/dL (12.0-16.0); Mean Corp Hgb Conc. 31.7 g/dL (33.0-37.0); Mean Corpuscular Volume 80.8 fL (81.0-99.0); Platelet Count 169 10^3/uL (130-400); Red Cell Dist. Width 17.1 % (11.5-14.5)
[2025-01-22 06:52] LABS: Blood Urea Nitrogen 19 mg/dl (7-17); Calcium 8.6 mg/dl (8.4-10.2); Carbon Dioxide 26 mmol/L (22-30); Chloride 107 mmol/L (98-107); Estimated Creatinine Clearance 102 ml/min; Glucose 140 mg/dl (70-99); Potassium 3.6 mmol/L (3.5-5.1); Sodium 137 mmol/L (135-145); eGFR > 60.00
--- NOTE | 2025-01-22 07:03 | W.PN.HOSP.TC ---
Addendum entered and electronically signed by Emily Cobb MD 01/22/25 14:03:
I saw and evaluated the patient independently. I reviewed the resident�s note and agree with findings and plan as documented by Dr. Perez.
GENERAL: well developed, well nourished, female in no apparent distress--pale appearing--c/o dizziness and nausea
HEENT: NC/AT
HEART: regular rate and rhythm, +S1, +S2
LUNGS : clear to auscultation bilaterally
ABDOM: soft, nontender, nondistended, + bowel sounds
EXT: no cyanosis, clubbing, or edema
NEUROLOGIC: grossly intact
Acute Symptomatic Anemia due to Epistaxis on Chronic Anemia--had nosebleed with swallowed blood--heme + black stool not worrisome, actually expected--s/p 2 units pRBC--will give 1 dose of IV iron--keep HGB > 7--if has another nosebleed, then consult
ENT, none further--Continue PPI IV BID
BRBPR--new development--still with black stools likely from swallowed blood but red blood new--HGB 7.9--transfusing another 1 unit pRBC--consult GI
Knee Pain S/p Fall due to syncope from symptomatic anemia--no fracture noted on x-ray--apprec ortho, CT scan with artifact and no fractures noted--Ordered PRN tylenol for Pain and Diclofenac Gel.
Essential Hypertension--Continue home meds as able
Hyperlipidemia--diet controlled?
Gastroesophageal Reflux Disease--Continue IV Pantoprazole
Depression--cont citalopram
History of Uterine Cancer s/p Chemo and Surgery--Encouraged follow up as needed
DVT proph
code status-- full code
Original Note:
Today's Communication/Plan
-
PT/OT evaluation today
Ordered pRBC x1 unit
Assessment / Plan
Assessment / Plan
Assessment:
This is a 64 y/o female with PMHX of frequent nose bleeds, left knee replacement, left hip replacement who presented to the ED on 01/20/2025 following a syncopal episode due to acute symptomatic anemia due to recurrent epistaxis and chronic anemia
(at baseline) now with bright red blood per rectum
Plan:
Acute Symptomatic Anemia due to Epistaxis with Chronic Anemia
-Patient has not had a recurrence of her nosebleeds since yesterday prior to the ED.
-S/p two units of leukocyte-reduced RBCs. Ordered another unit today
-Continue PPI IV BID
-Continue to trend hemoglobin and hematocrit with goal to keep hemoglobin >7
-Continue home medications and home application of vaseline to nasal passages
-Consider ENT referral if patient experiences another episode
-Continue to follow CBC
Bright Red Blood Per Rectum
-New bright red blood per rectum today with hemoglobin decrease to 7.5 initially. Currently with dizziness and lightheadedness
-Stool was heme + in the ED which was thought to be due to epistaxis
-Ordered another unit of pRBCs
-Consulted GI For concern for new active lower GI bleed
-Continue to follow CBC
Knee Pain S/p Fall
-Fall secondary to Acute Symptomatic Anemia (See above)
-X-ray demonstrated moderate join effusion and soft tissue edema
-CT scan left lower extremity showed an old fracture and was limited by hardware
-Continue PRN tylenol for Pain and Diclofenac Gel.
-Ordered Lidocaine Patch
-Orthopedics is following. Will appreciate their insight into her case
-PT ordered on 01/21/2025, but was rescheduled due to iron infusion. Ordered OT today as well.
Essential Hypertension
-Continue home meds on discharge
Hyperlipidemia
-Continue home meds on discharge
Gastroesophageal Reflux Disease
-Continue IV Pantoprazole
Depression
-Continue home meds on discharge
-Encouraged outpatient follow up
History of Uterine Cancer s/p Chemo and Surgery
-Encouraged follow up as needed
Anticipated Discharge: 24 - 48 hours
Subjective/Interval History
-
Date of Service: January 22, 2025
Patient was doing well today when I arrived. She states that last night she decided to ask for oral pain medications, and that she was given morphine which helped considerably with her pain. She continues to use ice on her knee with relief in her
pain, however, she is unable to tolerate standing or walking on her knee.
She reports that last night, during her most recent bowel movement, she had bright red blood per rectum. She states that there were numerous clots in her stool. She denies any symptoms like this in the past, and states that normally when she has a
nose bleed her stool will become dark but never bright red. She reports that while she was having her bowel movement she also became dizzy, and now is lightheaded and dizzy at baseline. She also reports feeling tired. Her most recent colonoscopy was
around 3 years ago by her report, and was normal.
Objective Data
-
Labs:
Laboratory Results
01/21/25 01/22/25
23:12 05:18
WBC 8.1
Hgb 7.5 L 7.6 L
Hct 22.4 L 24.0 L
Plt Count 169
Sodium 137
Potassium 3.6
Chloride 107
Carbon Dioxide 26
BUN 19 H
Creatinine 0.6
Glucose 140 H
Calcium 8.6
Vital Signs:
Vital Signs
Temp Pulse Resp BP Pulse Ox
98.5 F 69 16 128/60 95
01/22/25 03:31 01/22/25 03:31 01/22/25 03:31 01/22/25 03:31 01/22/25 03:31
I&O
01/21/25 01/22/25 01/23/25
06:59 06:59 06:59
Intake Total 1000 / 1000
Balance 1000 / 1000
Review of Systems
-
History Source: Patient
Constitutional: Reports Fatigue
Cardiac: Denies Chest Pain
Abdomen/GI: Reports Bloody Stools; Denies Abdominal Pain, Nausea, Vomiting, Diarrhea or Constipated
Musculoskeletal: Reports Joint Pain (Left Knee), Muscle Pain (Left Knee Area) and Edema (Left Knee)
Neuro: Reports Dizzy and Weakness
Physical Exam
-
General: Well Developed, Well Nourished, Comfortable, Morbidly Obese and Other (Pale)
HEENT: Normocephalic and Atraumatic
Respiratory: Clear to Auscultation
Cardiac: Regular Rhythm and S1/S2
GI: Soft, Nontender, Nondistended and Normal Bowel Sounds
Musculoskeletal: Edema, Left Lower Extrem (There is some swelling of the left knee similar to yesterday. The area is cold from an ice pack but without erythema. There is increased pain on small passive flexion/extension movements)
Skin: Warm and Dry
Neuro: Awake, Alert and Oriented
Psych: Calm
--- NOTE | 2025-01-22 09:10 | CON.ORTHO ---
Consultation - Orthopedics
Allergies / Home Medications
Allergy/AdvReac Type Severity Reaction Status Date / Time
'Kevin inhaler' Allergy NOSE BLEED Uncoded 01/20/25 20:21
�Medication �Instructions �Recorded
Citalopram Hydrobromide 40 mg PO DAILY Depression 12/21/21
Loratadine 10 mg PO DAILY Allergies 12/21/21
ergocalciferol (vitamin D2) 50 mcg 50 mcg PO WEEKLY Supplement 12/21/21
(2,000 unit) tablet
hydrochlorothiazide 25 mg tablet 25 mg PO DAILY Fluid 12/21/21
retention/Swelling
lisinopril 40 mg tablet 10 mg PO DAILY Blood pressure 12/21/21
multivitamin 1 ea PO DAILY Supplement 12/21/21
omeprazole 40 mg capsule,delayed 40 mg PO DAILY PRN heartburn 12/21/21
release
temazepam 22.5 mg capsule 22.5 mg PO HS Sleep 12/21/21
oxymetazoline 0.05 % nasal spray 2 sprays intranasal Q4HPRN PRN 12/22/21
(Afrin Sinus (oxymetazoline)) Bleeding ##1
sodium chloride 0.65 % nasal spray 2 sprays intranasal QIDPRN PRN 12/22/21
aerosol (Saline Nasal) Dryness ##1
Vital Signs / Lab Results
Temp Pulse Resp BP Pulse Ox
98 F 76 20 126/63 97
01/22/25 07:00 01/22/25 07:00 01/22/25 07:00 01/22/25 07:00 01/22/25 07:00
01/22/25 05:18
Assessment / Plan
64 yo F with fall onto left knee. Has pain and effusion. XR reviewed - shows total knee replacement and femoral intramedullary nail with healed distal femur fracture. No acute fracture seen. Recommend CT to better eval and rule out acute
fracture. If negative can WBAT with use of a knee immobilizer and walker as needed. Follow up with Dr. Deangelo Garcia after discharge from hospital.
[2025-01-22] MEDS: PROTONIX IV 40 MG IV ×2 (09:31→21:01)
[2025-01-22] MEDS: LIDOCAINE 4% PATCH 1 PATCH TOPICAL (09:31)
[2025-01-22 10:02] LABS: Hematocrit 24.4 % (37.0-47.0); Hemoglobin 7.9 g/dL (12.0-16.0)
--- NOTE | 2025-01-22 14:15 | CON.GI ---
Addendum entered and electronically signed by Felicia Gil Do, MD 01/22/25 16:12:
I saw and evaluated the patient. I reviewed the resident�s note and agree with findings and plan as documented in the resident�s note.
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 She had remote h/o uterine cancer completed surgery chemoXRT and in remission.
However since then she reports intermittent iron def anemia for which her construction field engineer givens per PRN IV iron. She does use advil 1-4 pills daily for h/o knee joint pains. She is on omeprazole daily for GERD. She denies anticoagulants. Vitals
stable AF not tachy normotensive. Exam obese stool dark melena tarry, NTTP, knees edematous with 2+ LE swelling. Labs reviewed normocytic anemia
Impression
- Melena and reports of hematochezia
in setting of daily nsaid use ddx includes ulcer or ectasia
- Epistaxis
- Chronic iron def anemia
- h/o RNY gastric bypass
- Chronic joint pains
- Chronic daily nsaid use
- Obesity
- GERD
- Hyperlipidemia
- DM
- Remote uterine cancer s/p XRT and chemo
Recommendation
- CLD start now
- Start golytle 2L now and 2 L tomorrow
- Bisacodyl
- Serial H/H
- Monitor stool output
- C/w PPI BID IV
- Counseled pt to stop all NSAIDs in future
Will follow with you
Original Note:
Medical History
Chief Complaint / HPI
Chief Complaint: Symptomatic anemia
History of Present Illness:
Patient is a 64-year-old female with past medical history of GERD, on PPIs, history of gastric bypass surgery, hyperlipidemia, presented with epistaxis, received 2 units of blood and iron infusion who had bright red bleeding per rectum today along
with black stools and hemoglobin dropped again, received another unit of blood today.
She has history of hysterectomy done about 5 years ago and her cancer is in remission, she has been dealing with chronic anemia and has had history of chronic knee pain for which she takes NSAIDs on daily basis. She had 6 hours of epistaxis,
following that she was dizzy and very fatigued came to the ER, was admitted for symptomatic anemia. Yesterday she had an episode of bright red bleeding per rectum that has never happened before. Today giovanni she had melena but no fresh blood in
stool.
She denies any nausea, vomiting, hematemesis, heartburn, indigestion or any trouble with swallowing. She is not on any blood thinners
Past Medical History
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
Past Surgical History: Other (Hysterectomy Left knee replacement Left femoral surgery Gastric bypass Robotic LAVH/BSO/LNS omental bx)
Social History
Tobacco: Non-Smoker
Alcohol: Occasional
Drug: None
Personal: Single
Living: Alone
Employment: Other (Works at [employer] and [employer])
Family History
Family History: Reviewed & Not Pertinent (Denies any family history of colon cancer, stomach cancer, IBD)
Allergies / Home Medications
Allergy/AdvReac Type Severity Reaction Status Date / Time
'Kevin inhaler' Allergy NOSE BLEED Uncoded 01/20/25 20:21
�Medication �Instructions �Recorded
Citalopram Hydrobromide 40 mg PO DAILY Depression 12/21/21
Loratadine 10 mg PO DAILY Allergies 12/21/21
ergocalciferol (vitamin D2) 50 mcg 50 mcg PO WEEKLY Supplement 12/21/21
(2,000 unit) tablet
hydrochlorothiazide 25 mg tablet 25 mg PO DAILY Fluid 12/21/21
retention/Swelling
lisinopril 40 mg tablet 10 mg PO DAILY Blood pressure 12/21/21
multivitamin 1 ea PO DAILY Supplement 12/21/21
omeprazole 40 mg capsule,delayed 40 mg PO DAILY PRN heartburn 12/21/21
release
temazepam 22.5 mg capsule 22.5 mg PO HS Sleep 12/21/21
oxymetazoline 0.05 % nasal spray 2 sprays intranasal Q4HPRN PRN 12/22/21
(Afrin Sinus (oxymetazoline)) Bleeding ##1
sodium chloride 0.65 % nasal spray 2 sprays intranasal QIDPRN PRN 12/22/21
aerosol (Saline Nasal) Dryness ##1
Review of Systems
-
All other systems: A 12 pt ROS was Negative except as stated above in HPI
Vital Signs
Temp Pulse Resp BP Pulse Ox
98.3 F 79 20 128/52 96
01/22/25 11:00 01/22/25 11:00 01/22/25 11:00 01/22/25 11:00 01/22/25 11:00
Physical Exam
Results
WBC 8.1 10^3/uL (4.8-10.8) 01/22/25 05:18
Hgb 7.9 g/dL (12.0-16.0) L 01/22/25 09:34
Hct 24.4 % (37.0-47.0) L 01/22/25 09:34
MCV 80.8 fL (81.0-99.0) L 01/22/25 05:18
Plt Count 169 10^3/uL (130-400) 01/22/25 05:18
Absolute Neuts (auto) 10.8 10^3/uL (1.4-6.5) H 01/20/25 20:47
Sodium 137 mmol/L (135-145) 01/22/25 05:18
Potassium 3.6 mmol/L (3.5-5.1) 01/22/25 05:18
Chloride 107 mmol/L (98-107) 01/22/25 05:18
Carbon Dioxide 26 mmol/L (22-30) 01/22/25 05:18
BUN 19 mg/dl (7-17) H 01/22/25 05:18
Creatinine 0.6 mg/dL (0.6-1.0) 01/22/25 05:18
Calcium 8.6 mg/dl (8.4-10.2) 01/22/25 05:18
Total Bilirubin 0.6 mg/dl (0.2-1.3) 01/20/25 20:47
AST 16 U/L (14-36) 01/20/25 20:47
ALT 17 U/L (0-35) 01/20/25 20:47
Alkaline Phosphatase 87 U/L (38-126) 01/20/25 20:47
Diagnostic Image Results:
11/2023
IMPRESSION: No evidence of acute nor metastatic disease the chest, abdomen and pelvis.
Stable left anterior wall lipoma.
Hepatic and pancreatic fatty infiltration. Stable.
Gallstones. Stable
Simple right ovarian cyst. Stable
Prior GI Procedures:
EGD:
None
Colonoscopy:
2020
Impression: - Normal mucosa in the entire examined colon. Several
biopsies were obtained for evaluation of microscopic
colitis.
Colon, random (biopsy):
Colonic mucosa with no specific pathologic change.
No evidence of microscopic colitis.
Assessment / Plan
-
Impression
Syncopal episode secondary to anemia
Melena
Chronic iron deficiency anemia
History of NSAID use
Epistaxis
Chronic GERD
History of uterine cancer s/p chemo and surgery
Hyperlipidemia
Hypertension
Recommendations
Clear liquid diet
Continue pantoprazole 40 mg IV twice daily
Colytle 2liters today
colytle 2 liters tomorrow for adequate bowel prep
Plan colonoscopy
monitor H&H
Anemia workup as per primary team
-
-
Thank you for consultation and allowing me to participate in the patient's care. Please call the superannuation clerk GI physician during the after hours with any questions or concerns.
[2025-01-22] MEDS: NULYTELY SOLUTION 2 LITERS PO (18:21)
[2025-01-22] MEDS: TYLENOL 650 MG PO (18:22)
[2025-01-22] MEDS: DICLOFENAC 1% TOPICAL GEL 1 GRAM TOPICAL (18:22)
[2025-01-22 18:24] LABS: Hematocrit 25.4 % (37.0-47.0); Hemoglobin 8.3 g/dL (12.0-16.0)
[2025-01-22] MEDS: REMOVE LIDOCAINE PATCH 1 PATCH REMOVE (21:01)
[2025-01-22] MEDS: NSS (PRESERVATIVE FREE) 10 ML IV (21:01)
[2025-01-22] MEDS: RESTORIL 22.5 MG PO (21:56)
[2025-01-22] MEDS: DICLOFENAC 1% TOPICAL GEL 100 GRAM TOPICAL (22:01)
[2025-01-23] VITALS (9 sets, daily range): BP systolic 132–177; BP diastolic 56–81; PULSE 78–79; O2SAT 97
[2025-01-23] MEDS: TYLENOL 650 MG PO ×2 (04:03→12:58)
--- NOTE | 2025-01-23 07:24 | W.PN.HOSP.TC ---
Today's Communication/Plan
-
Continue to monitor CBC,
PT/OT to evaluate and treat
Assessment / Plan
Assessment / Plan
Assessment:
This is a 64 y/o female with PMHX of frequent nose bleeds, left knee replacement, left hip replacement who presented to the ED on 01/20/2025 following a syncopal episode due to acute symptomatic anemia due to recurrent epistaxis and chronic anemia
(at baseline) now with bright red blood per rectum
Plan:
Acute Symptomatic Anemia due to Epistaxis with Chronic Anemia
-Patient has not had a recurrence of her nosebleeds since prior to her admission
-S/p three units of leukocyte-reduced RBCs.
-Continue PPI IV BID
-Continue to trend hemoglobin and hematocrit with goal to keep hemoglobin >7
-Continue home medications and home application of vaseline to nasal passages
-Consider ENT referral if patient experiences another episode
-Continue to follow CBC
Bright Red Blood Per Rectum
-New bright red blood per rectum yesterday with hemoglobin decrease to 7.5 initially. Hemoglobin post transfusion increased to >8.
-Stool was heme + in the ED which was thought to be due to epistaxis
-GI is following and patient is scheduled for a colonoscopy today to evaluate for active GI bleed
-Continue to follow CBC
Knee Pain S/p Fall
-Fall secondary to Acute Symptomatic Anemia (See above)
-X-ray demonstrated moderate join effusion and soft tissue edema
-CT scan left lower extremity showed an old fracture and was limited by hardware
-Continue PRN tylenol for Pain, Diclofenac Gel, Lidocaine Patch
-Orthopedics is following. Will appreciate their insight into her case
-PT initially ordered on 01/21/2025, but was rescheduled due to iron infusion. Ordered OT yesterday as well.
Essential Hypertension
-Continue home meds on discharge
Hyperlipidemia
-Continue home meds on discharge
Gastroesophageal Reflux Disease
-Continue IV Pantoprazole
Depression
-Continue home meds on discharge
-Encouraged outpatient follow up
History of Uterine Cancer s/p Chemo and Surgery
-Encouraged follow up as needed
Anticipated Discharge: 24 - 48 hours
Subjective/Interval History
-
Date of Service: January 23, 2025
Patient was doing well today when I arrived. She states that the swelling in her knee has decreased somewhat due to her using ice and keeping it elevated with a pillow. She experiences good relief in her pain with use of the diclofenac gel and
lidocaine patches, and already ordered some lidocaine patches for herself off of [employer] for when she is able to return home. She reports PT has not seen her since she was receiving her iron infusion on 01/21 and was unable to participate. She has
also not yet seen OT or Orthopedics today.
She does report ongoing dizziness, which she states will not improve until she is able to move around. Her dizziness has improved from yesterday after her transfusion. She did also reach out to her heme/onc doctor to inform them of her
hospitalization.
She was able to get up and with assistance from a walker turn off the lights last evening. She does have a walker at home already.
Objective Data
-
Labs:
Laboratory Results
01/23/25
06:00
WBC Pending
Hgb Pending
Hct Pending
Plt Count Pending
Sodium Pending
Potassium Pending
Chloride Pending
Carbon Dioxide Pending
BUN Pending
Creatinine Pending
Glucose Pending
Calcium Pending
Vital Signs:
Vital Signs
Temp Pulse Resp BP Pulse Ox
98.2 F 73 14 141/65 97
01/23/25 03:10 01/23/25 03:10 01/23/25 03:10 01/23/25 03:10 01/23/25 03:10
I&O
01/22/25 01/23/25 01/24/25
06:59 06:59 06:59
Intake Total 1210 / 1210
Output Total 0 / 0
Balance 1210 / 1210
Review of Systems
-
History Source: Patient
Constitutional: Denies Fever, Fatigue, Chills or Weakness
Respiratory: Denies Cough or Trouble Breathing
Cardiac: Denies Chest Pain
Abdomen/GI: Reports Diarrhea (From colonoscopy prep), Bloody Stools (Started yesterday) and Black Stools (Every time she gets nosebleeds her stools are dark); Denies Abdominal Pain, Nausea, Vomiting or Constipated
Musculoskeletal: Reports Joint Pain (Left knee, improving), Joint Swelling (Left knee, improving), Muscle Pain (Left knee area) and Muscle Stiffness (Left knee, improving)
Neuro: Reports Dizzy; Denies Headache, Weakness or Numbness
Physical Exam
-
General: Well Developed, Well Nourished, No Apparent Distress, Comfortable and Morbidly Obese
HEENT: Normocephalic and Atraumatic
Respiratory: Clear to Auscultation
Cardiac: Regular Rhythm and S1/S2
GI: Soft and Nontender
Musculoskeletal: Edema, Left Lower Extrem (There is edema of the left knee, improving from yesterday. It is less tender to palpation. The knee remains cold due to use of ice packs. An old, well healed knee placement scar is present)
Skin: Warm and Dry
Neuro: Awake, Alert and Oriented
Psych: Calm and Intact Judgement/Insight
[2025-01-23] MEDS: LIDOCAINE 4% PATCH 1 PATCH TOPICAL (08:22)
[2025-01-23] MEDS: PROTONIX IV 40 MG IV ×2 (08:22→22:07)
[2025-01-23] MEDS: NSS (PRESERVATIVE FREE) 10 ML IV ×2 (08:22→22:07)
[2025-01-23 08:55] LABS: Hematocrit 26.0 % (37.0-47.0); Hemoglobin 8.4 g/dL (12.0-16.0); Mean Corp Hgb Conc. 32.3 g/dL (33.0-37.0); Mean Corpuscular Volume 80.2 fL (81.0-99.0); Platelet Count 149 10^3/uL (130-400); Red Cell Dist. Width 17.3 % (11.5-14.5)
[2025-01-23 09:24] LABS: Blood Urea Nitrogen 10 mg/dl (7-17); Calcium 8.6 mg/dl (8.4-10.2); Carbon Dioxide 24 mmol/L (22-30); Chloride 109 mmol/L (98-107); Estimated Creatinine Clearance 102 ml/min; Glucose 111 mg/dl (70-99); Potassium 4.1 mmol/L (3.5-5.1); Sodium 138 mmol/L (135-145); eGFR > 60.00
--- NOTE | 2025-01-23 14:38 | W.PN.GI.CBS2 ---
Today's Communication / Plan
-
CLD NPO at [facility] for EGD/colon tomorrow
Will follow with you
Assessment / Plan
-
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 She had remote h/o uterine cancer completed surgery chemoXRT and in remission.
However since then she reports intermittent iron def anemia for which her core rescuer givens per PRN IV iron. She does use advil 1-4 pills daily for h/o knee joint pains. She is on omeprazole daily for GERD. She denies anticoagulants. No recent
EGD and Cscope [address] Heaton
Impression
- Melena and reports of hematochezia
in setting of daily nsaid use ddx includes ulcer or ectasia
- Epistaxis
- Chronic iron def anemia
- h/o RNY gastric bypass
- Chronic joint pains
- Chronic daily nsaid use
- Obesity
- GERD
- Hyperlipidemia
- DM
- Remote uterine cancer s/p XRT and chemo
Recommendation
- C/w CLD, NPO at [facility] for EGD/colon tomorrow
- 2L golytle today and mag citrate x1
- Serial H/H
- Monitor stool output
- C/w PPI BID IV
- Counseled pt to stop all NSAIDs in future
Will follow with you
Subjective
Subjective
Date of Service: January 23, 2025
She completed 2L colyte yesterday. Stools still dark. Denies abd pain, nausea/vomiting
Objective
Data Reviewed
Laboratory Data:
Laboratory Results
01/23/25 08:14
01/23/25 08:14
Laboratory Results
Total Bilirubin 0.6 mg/dl (0.2-1.3) 01/20/25 20:47
AST 16 U/L (14-36) 01/20/25 20:47
ALT 17 U/L (0-35) 01/20/25 20:47
Alkaline Phosphatase 87 U/L (38-126) 01/20/25 20:47
Vital Signs and I&O:
Vital Signs
Temp Pulse Resp BP Pulse Ox
98.5 F 79 18 136/68 96
01/23/25 11:42 01/23/25 11:42 01/23/25 11:42 01/23/25 11:42 01/23/25 11:42
I&O
01/22/25 01/23/25 01/24/25
06:59 06:59 06:59
Intake Total 1210 / 1210
Output Total 0 / 0
Balance 1210 / 1210
Physical Exam
Physical Exam
GEN: No acute distress, conversant, pleasant
HEENT: anicteric, extraocular movements intact, clear oropharynx without exudates
GI: soft, obese mildly-distended, not tender to palpation, normal active bowel sounds, no hepatosplenomegaly
EXT: warm, well perfused, 2+edema bilaterally
NEURO: AAOx3, non-focal slowed gait
[2025-01-23] MEDS: DULCOLAX 10 MG PO (16:59)
[2025-01-23] MEDS: NULYTELY SOLUTION 2 LITERS PO (17:11)
[2025-01-23] MEDS: CITROMA 300 ML PO (17:18)
[2025-01-23 20:16] LABS: Glucose - Point of Care 118 mg/dl (70-99)
[2025-01-23 21:08] LABS: Hematocrit 26.6 % (37.0-47.0); Hemoglobin 8.5 g/dL (12.0-16.0); Mean Corp Hgb Conc. 32.0 g/dL (33.0-37.0); Mean Corpuscular Volume 80.9 fL (81.0-99.0); Platelet Count 162 10^3/uL (130-400); Red Cell Dist. Width 17.3 % (11.5-14.5)
[2025-01-23 21:17] LABS: Blood Urea Nitrogen 7 mg/dl (7-17); Calcium 8.5 mg/dl (8.4-10.2); Carbon Dioxide 20 mmol/L (22-30); Chloride 109 mmol/L (98-107); Estimated Creatinine Clearance 102 ml/min; Glucose 118 mg/dl (70-99); Magnesium 1.8 mg/dl (1.6-2.3); Potassium 3.9 mmol/L (3.5-5.1); Sodium 135 mmol/L (135-145); eGFR > 60.00
--- NOTE | 2025-01-23 21:23 | W.PN.UPDATE ---
Update Note
Progress Note Update
RN alerted patient tele monitor showed v fib/v tach, patient was using commode after bowel prep, reported 'shivering' and patient reported lightheaded and cold. VS stable, afebrile. EKG noted, Labs drawn and wnl. Patient seen and evaluated, Lungs
clear, HR RR + BS 4 quad, no blood noted in stool per patient. patient without new complaints. Advised patient and RN of fall precautions.
[2025-01-23] MEDS: REMOVE LIDOCAINE PATCH 1 PATCH REMOVE (22:05)
[2025-01-23] MEDS: RESTORIL 22.5 MG PO (22:06)
[2025-01-24] VITALS (10 sets, daily range): BP systolic 107–171; BP diastolic 64–86; PULSE 78–84
[2025-01-24] MEDS: TYLENOL 650 MG PO (02:15)
[2025-01-24] MEDS: DICLOFENAC 1% TOPICAL GEL 4 GRAM TOPICAL (02:15)
--- NOTE | 2025-01-24 05:36 | DOWNTIME ---
There was a SKURA Client Category Director Downtime on 01/24/2025 from 0100 to 01/24/2025 at 0220. Downtime documentation of patient's care, including medication administrations, has been reconciled in the electronic record per guidelines. Refer to the
patient's paper chart under the miscellaneous tab to see printed paper medication records and downtime forms.
[2025-01-24 07:59] LABS: Hematocrit 27.1 % (37.0-47.0); Hemoglobin 8.3 g/dL (12.0-16.0); Mean Corp Hgb Conc. 30.6 g/dL (33.0-37.0); Mean Corpuscular Volume 82.6 fL (81.0-99.0); Platelet Count 169 10^3/uL (130-400); Red Cell Dist. Width 17.3 % (11.5-14.5)
[2025-01-24] MEDS: LIDOCAINE 4% PATCH 1 PATCH TOPICAL (08:02)
[2025-01-24] MEDS: PROTONIX IV 40 MG IV (08:02)
[2025-01-24] MEDS: NSS (PRESERVATIVE FREE) 10 ML IV (08:03)
[2025-01-24 08:28] LABS: Blood Urea Nitrogen 6 mg/dl (7-17); Calcium 8.6 mg/dl (8.4-10.2); Carbon Dioxide 24 mmol/L (22-30); Chloride 109 mmol/L (98-107); Estimated Creatinine Clearance 87 ml/min; Glucose 114 mg/dl (70-99); Potassium 3.5 mmol/L (3.5-5.1); Sodium 139 mmol/L (135-145); eGFR > 60.00
--- NOTE | 2025-01-24 08:44 | W.PN.HOSP.TC ---
Today's Communication/Plan
-
Colonoscopy/Upper Endoscopy today
Assessment / Plan
Assessment / Plan
Assessment:
This is a 64 y/o female with PMHX of frequent nose bleeds, left knee replacement, left hip replacement who presented to the ED on 01/20/2025 following a syncopal episode due to acute symptomatic anemia due to recurrent epistaxis and chronic anemia
(at baseline) now with bright red blood per rectum
Plan:
Acute Symptomatic Anemia due to Epistaxis with Chronic Anemia
-Patient has not had a recurrence of her nosebleeds since prior to her admission
-S/p three units of leukocyte-reduced RBCs.
-Continue PPI IV BID
-Continue to trend hemoglobin and hematocrit with goal to keep hemoglobin >7
-Continue home medications and home application of vaseline to nasal passages
-Consider ENT referral if patient experiences another episode
-Continue to follow CBC
Bright Red Blood Per Rectum
-New bright red blood per rectum 01/22 with hemoglobin decrease to 7.5 initially. Hemoglobin post transfusion increased to >8.
-Stool was heme + in the ED which was thought to be due to epistaxis
-GI is following and patient is scheduled for a colonoscopy today to evaluate for active GI bleed
-Consider giving patient a fourth unit of pRBCs if she continues to feel dizzy prior to discharge to help prevent another episode of syncope
-Continue to follow CBC
Left Knee Pain S/p Fall
-Fall secondary to Acute Symptomatic Anemia (See above)
-X-ray demonstrated moderate join effusion and soft tissue edema
-CT scan left lower extremity showed an old fracture and was limited by hardware
-Continue PRN tylenol for Pain, Diclofenac Gel, Lidocaine Patch
-Orthopedics is following. Will appreciate their insight into her case
-PT/OT are following
Essential Hypertension
-Continue home meds on discharge
Hyperlipidemia
-Continue home meds on discharge
Gastroesophageal Reflux Disease
-Continue IV Pantoprazole
Depression
-Continue home meds on discharge
-Encouraged outpatient follow up
History of Uterine Cancer s/p Chemo and Surgery
-Encouraged follow up as needed
Anticipated Discharge: Within 24 hours
Subjective/Interval History
-
Date of Service: January 24, 2025
Patient was awake when I arrived. She continues to experience ongoing lightheadedness and dizziness, but denies shortness of breath, chest pain, palpitations. She does report some nasal congestion. She states that she feels weaker due to not being
able to eat in preparation for her endoscopy/colonoscopy today, and looks forward to being able to eat again to help regain some of her strength.
Objective Data
-
Labs:
Laboratory Results
01/23/25 01/24/25
20:55 07:26
WBC 8.6 6.4
Hgb 8.5 L 8.3 L
Hct 26.6 L 27.1 L
Plt Count 162 169
Sodium 135 139
Potassium 3.9 3.5
Chloride 109 H 109 H
Carbon Dioxide 20 L 24
BUN 7 6 L
Creatinine 0.6 0.7
Glucose 118 H 114 H
Calcium 8.5 8.6
Vital Signs:
Vital Signs
Temp Pulse Resp BP Pulse Ox
97.4 F 68 16 148/86 98
01/24/25 08:12 01/24/25 08:12 01/24/25 08:12 01/24/25 08:12 01/24/25 08:12
I&O
01/23/25 01/24/25 01/25/25
06:59 06:59 06:59
Intake Total 1210 / 1210 2820 / 2820
Output Total 0 / 0
Balance 1210 / 1210 2820 / 2820
Review of Systems
-
History Source: Patient
Constitutional: Reports Weakness
EENT: Reports Runny Nose; Denies Bloody Nose
Respiratory: Denies Cough, Trouble Breathing or Wheezing
Cardiac: Denies Chest Pain, Diaphoresis, Palpitations or Syncope
Abdomen/GI: Denies Abdominal Pain, Nausea, Vomiting or Constipated
Musculoskeletal: Reports Joint Pain (Left knee, improving), Joint Swelling (Left knee, improving) and Muscle Stiffness (Left knee area, improving)
Skin: Denies Itching or Rash
Neuro: Reports Dizzy, Weakness and Lightheadedness; Denies Headache or Numbness
--- NOTE | 2025-01-24 13:59 | CM ---
Addendum entered by Nayeli Omalley 01/24/25 14:26:
[facility] liaison saw patient, however she will be going to [place] in a few days, so VN will not be appropriate.
Addendum entered by Nayeli Omalley 01/24/25 14:02:
correction, no IMM given.
Original Note:
Patient seen bedside with sister in law in room.
PT/OT recommending home care.
TT to VN liaison, patient had them in the past.
If patient is d/c today, her sister in aw will transport.
IMM completed.
Plan: home with VN
--- NOTE | 2025-01-24 14:29 | VNURNOTE ---
[facility] met with patient and sister in law at bedside. Reviewed short term, intermittent, skilled criteria. Reviewed home bound criteria. Patient stated she is going to [place] early next week with her daughter. Her daughter is a nurse. Would
not meet home bound criteria. Patient verbalizes understanding and declines VN. BENITEZ Jarrett updated, No referral placed.
--- NOTE | 2025-01-24 14:57 | W.DCSUMMARY ---
Documented by User: Lor CristobalDO scott, Resident 01/24/25 14:59
Discharge Summary
Discharge Data
Date of Admission: 01/20/25
Date of Discharge: 01/24/25
-
Pending Results: Yes (Endoscopy and Colonoscopy pathology results)
Hospital Course
This is a 64 y/o female with PMHX of frequent nose bleeds, left knee replacement, left hip replacement who presented to the ED on 01/20/2025 following a syncopal episode. She had begun to experience persistent nosebleeds starting around 2PM on the
same day of her admission. She had begun to experience dizziness and lightheadedness, and while she has been using the bathroom had lost consciousness. She struck her knee on the floor, and had been unable to rise for 40 minutes due to severe knee
pain in her left knee. This has happened to her before, and the last time she lost consciousness and fell onto her knee she broke her left hip.
She was taken to the emergency department where her hemoglobin was 7.0, and 6.2 on repeat. She was transfused with two units of leukocyte-reduced RBCs. Her TIBC was normal at 385. Her % saturation was low at 16. Prior values for % Sat include 7
(01/11/2025) and 9 (03/31/16). She was given an iron infusion, and her hemoglobin on was 7.6. Orthopedics was consulted, and CT scan of her right lower extremity was unremarkable for new fractures. On 01/22/2025 she developed new bright red blood
per rectum with a decrease in hemoglobin to 7.5. She was given another unit of pRBCs which increased her hemoglobin to 8.5. Gastroenterology was consulted, and on 01/24/2025 colonoscopy revealed an anterior rectocele, two semi-sessile polyps in the
ascending colon (4-6mm) that were removed with cold snare, normal appearing terminal ileum. An endoscopy revealed a small hiatal hernia, evidence of gastric surgery with healthy appearing mucosa and normal examined small bowel. Biopsies were taken
to test for H. Pylori. Her dizziness improved and her hemoglobin remained above 8 for the remainder of her hospitalization. She was found to be medically stable and discharged to home on 01/24/2025 with instructions to follow up with her PCP in less
than one week.
Discharge Plan
-
Patient Disposition: Home (Routine Discharge)
Discharge Diagnosis/Procedures: Acute Symptomatic Anemia due to Epistaxis with Chronic Anemia, Bright Red Blood Per Rectum, Left Knee Pain S/p Fall, Essential Hypertension, Hyperlipidemia, Gastroesophageal Reflux Disease, Depression, History of
Uterine Cancer s/p Chemo and Surgery
Condition: Good
Diet: No restrictions
Activity: No restrictions
Driving Restrictions: As prior to admission
Bathing Restrictions: None
Blood Work: CBC to be completed on 01/27/2025
Referrals:
Marleen Meneses MD [Family Provider, [facility]] - in less than 1 week
Prescriptions:
Continued
multivitamin 1 EACH tablet
1 ea PO DAILY
omeprazole 40 MG capsule,delayed release(DR/EC)
40 mg PO DAILY PRN (Reason: heartburn)
hydrochlorothiazide 25 MG tablet
25 mg PO DAILY
lisinopril 40 MG tablet
10 mg PO DAILY
temazepam 22.5 MG capsule
22.5 mg PO HS
ergocalciferol (vitamin D2) 50 MCG tablet
50 mcg PO WEEKLY
Citalopram Hydrobromide
40 mg PO DAILY
Loratadine
10 mg PO DAILY
oxymetazoline [Afrin Sinus (oxymetazoline)] 30 SPRAYS/15 ML spray,non-aerosol
2 sprays intranasal Q4HPRN PRN (Reason: Bleeding) Qty: 1 1RF
Saline Nasal 50 SPRAYS/45 ML aerosol,spray
2 sprays intranasal QIDPRN PRN (Reason: Dryness) Qty: 1 1RF
Discharge Orders:
Discharge Patient (As Directed); Ordered 01/24/25
Ordered By: Lor Perez
Discharge Date and Time
Print Language: GREEK

Documented by User: Agustin Bernal DO 01/24/25 15:02
Discharge Summary
Discharge Data
Date of Admission: 01/20/25
Date of Discharge: 01/24/25
Total time spent discharging patient (in min): 37
Discharge Plan
-
Patient Disposition: Home (Routine Discharge)
Discharge Diagnosis/Procedures: Acute Symptomatic Anemia due to Epistaxis with Chronic Anemia, Bright Red Blood Per Rectum, Left Knee Pain S/p Fall, Essential Hypertension, Hyperlipidemia, Gastroesophageal Reflux Disease, Depression, History of
Uterine Cancer s/p Chemo and Surgery
Condition: Good
Diet: No restrictions
Activity: No restrictions
Driving Restrictions: As prior to admission
Bathing Restrictions: None
Blood Work: CBC to be completed on 01/27/2025
Referrals:
Marleen Meneses MD [Family Provider, [facility]] - in less than 1 week
Prescriptions:
Continued
multivitamin 1 EACH tablet
1 ea PO DAILY
omeprazole 40 MG capsule,delayed release(DR/EC)
40 mg PO DAILY PRN (Reason: heartburn)
hydrochlorothiazide 25 MG tablet
25 mg PO DAILY
lisinopril 40 MG tablet
10 mg PO DAILY
temazepam 22.5 MG capsule
22.5 mg PO HS
ergocalciferol (vitamin D2) 50 MCG tablet
50 mcg PO WEEKLY
Citalopram Hydrobromide
40 mg PO DAILY
Loratadine
10 mg PO DAILY
oxymetazoline [Afrin Sinus (oxymetazoline)] 30 SPRAYS/15 ML spray,non-aerosol
2 sprays intranasal Q4HPRN PRN (Reason: Bleeding) Qty: 1 1RF
Saline Nasal 50 SPRAYS/45 ML aerosol,spray
2 sprays intranasal QIDPRN PRN (Reason: Dryness) Qty: 1 1RF
Discharge Orders:
Discharge Patient (As Directed); Ordered 01/24/25
Ordered By: Lor Perez
Discharge Date and Time
Print Language: GREEK
== END 2025-01-24 16:16 | disposition home health service (06) | DRG 378 ==
LOC: 4 WEST ACU 20:21
PROVIDERS: Internal Medicine; Nurse Practitioner Gerontology; ADMITTING PHYSICIAN Internal Medicine; ATTENDING PHYSICIAN Internal Medicine; CONSULT PHYSICIAN Internal Medicine Gastroenterology; CONSULT PHYSICIAN Orthopaedic Surgery; EMERGENCY PHYSICIAN Emergency Medicine; FAMILY PHYSICIAN Family Medicine
PROC: 30233N1 Transfusion of Nonautologous Red Blood Cells into Peripheral Vein, Percutaneous Approach (ICD-10-PCS; 2025-01-21)
PROC: 0DB88ZX Excision of Small Intestine, Via Natural or Artificial Opening Endoscopic, Diagnostic (ICD-10-PCS; 2025-01-24)
PROC: 0DB68ZX Excision of Stomach, Via Natural or Artificial Opening Endoscopic, Diagnostic (ICD-10-PCS; 2025-01-24)
PROC: 0DBK8ZZ Excision of Ascending Colon, Via Natural or Artificial Opening Endoscopic (ICD-10-PCS; 2025-01-24)
DX: K92.2 Gastrointestinal hemorrhage, unspecified (principal); Z68.41 Body mass index [BMI] 40.0-44.9, adult; D50.9 Iron deficiency anemia, unspecified; K92.0 Hematemesis; R04.0 Epistaxis; F32.A Depression, unspecified; I10 Essential (primary) hypertension; K21.9 Gastro-esophageal reflux disease without esophagitis; Z85.42 Personal history of malignant neoplasm of other parts of uterus; Z92.21 Personal history of antineoplastic chemotherapy; E78.5 Hyperlipidemia, unspecified; Z96.652 Presence of left artificial knee joint; Z96.642 Presence of left artificial hip joint; N81.6 Rectocele; D12.2 Benign neoplasm of ascending colon; K44.9 Diaphragmatic hernia without obstruction or gangrene; D17.9 Benign lipomatous neoplasm, unspecified; E11.9 Type 2 diabetes mellitus without complications; E66.9 Obesity, unspecified; G89.29 Other chronic pain; N83.291 Other ovarian cyst, right side; K80.20 Calculus of gallbladder without cholecystitis without obstruction; Z77.098 Contact with and (suspected) exposure to other hazardous, chiefly nonmedicinal, chemicals; Z79.899 Other long term (current) drug therapy; Z90.710 Acquired absence of both cervix and uterus; Z92.3 Personal history of irradiation; Z98.84 Bariatric surgery status
CPT/HCPCS: 73564; 73700; 80048; 80053; 82962; 83540; 83550; 83735; 84484; 85014; 85018; 85025; 85027; 86850; 86900; 86901; 86920; 88305; 88342; 93005; 96361; 96374; 97162; 97166; 99291; J2916; P9016

== ENCOUNTER → 2025-01-27 15:59 | Outpatient (REF) | payer BC, SELFPAY ==
[2025-01-27 16:29] LABS: Hematocrit 26.3 % (37.0-47.0); Hemoglobin 8.3 g/dL (12.0-16.0); Mean Corp Hgb Conc. 31.6 g/dL (33.0-37.0); Mean Corpuscular Volume 82.4 fL (81.0-99.0); Nucleated Red Blood Cells % 0 %; Platelet Count 226 10^3/uL (130-400); Red Cell Dist. Width 18.3 % (11.5-14.5)
== END ==
LOC: REG 15:59
PROVIDERS: ATTENDING PHYSICIAN Internal Medicine; FAMILY PHYSICIAN Family Medicine
DX: R04.0 Epistaxis (principal)
CPT/HCPCS: 36415; 85025

== ENCOUNTER → 2025-02-09 13:25 | Outpatient (REF) | payer BC, SELFPAY ==
[2025-02-09 14:19] LABS: Hematocrit 30.0 % (37.0-47.0); Hemoglobin 9.1 g/dL (12.0-16.0); Mean Corp Hgb Conc. 30.3 g/dL (33.0-37.0); Mean Corpuscular Volume 84.3 fL (81.0-99.0); Nucleated Red Blood Cells % 0 %; Platelet Count 259 10^3/uL (130-400); Red Cell Dist. Width 18.5 % (11.5-14.5)
[2025-02-09 14:42] LABS: Iron 72 ug/dl (37-170)
[2025-02-09 14:52] LABS: Total Iron Binding Capacity 340 ug/dl (265-497)
[2025-02-09 15:23] LABS: Ferritin 18.9 ng/ml (11.1-264.0)
[2025-02-09 15:54] LABS: Folate 17.3 ng/ml (2.76-20); Vitamin B12 467 pg/ml (239-931)
== END ==
LOC: REG 13:25
PROVIDERS: ATTENDING PHYSICIAN Obstetrics & Gynecology Gynecologic Oncology; FAMILY PHYSICIAN Family Medicine
DX: D50.9 Iron deficiency anemia, unspecified (principal); D64.9 Anemia, unspecified; E53.8 Deficiency of other specified B group vitamins; C54.1 Malignant neoplasm of endometrium
CPT/HCPCS: 36415; 82607; 82728; 82746; 83540; 83550; 85025

== ENCOUNTER 2025-03-30 10:59 | Outpatient (RCR) | payer BC, SELFPAY ==
[2025-03-09 10:51] VITALS: BP 139/72
[2025-03-09] MEDS: VENOFER 110 MG IV (11:10)
[2025-03-09 12:42] VITALS: BP 136/66
[2025-03-16] MEDS: VENOFER 110 MG IV (11:17)
[2025-03-16 11:23] VITALS: BP 153/68
[2025-03-16 12:40] VITALS: BP 135/69
[2025-03-23 10:45] VITALS: BP 134/54
[2025-03-23] MEDS: VENOFER 110 MG IV (11:06)
[2025-03-23 12:15] VITALS: BP 120/55
[2025-03-30] MEDS: VENOFER 110 MG IV (11:23)
[2025-03-30 11:27] VITALS: BP 178/84
[2025-03-30 12:50] VITALS: BP 167/73
[2025-03-30 12:51] VITALS: BP 158/71
== END 2025-03-31 08:43 | disposition home or self-care (01) ==
LOC: OID 10:59
PROVIDERS: ATTENDING PHYSICIAN Internal Medicine Hematology & Oncology; FAMILY PHYSICIAN Family Medicine
DX: D50.9 Iron deficiency anemia, unspecified (principal); C54.1 Malignant neoplasm of endometrium; E53.8 Deficiency of other specified B group vitamins
CPT/HCPCS: 96365; J1756

== ENCOUNTER 2025-04-06 10:45 | Outpatient (RCR) | payer BC, SELFPAY ==
[2025-04-06 11:05] VITALS: BP 161/73
[2025-04-06] MEDS: VENOFER 110 MG IV (11:18)
[2025-04-06 12:30] VITALS: BP 128/70
== END 2025-04-07 09:17 | disposition home or self-care (01) ==
LOC: OID 10:45
PROVIDERS: ATTENDING PHYSICIAN Internal Medicine Hematology & Oncology; FAMILY PHYSICIAN Family Medicine
DX: D50.9 Iron deficiency anemia, unspecified (principal); C54.1 Malignant neoplasm of endometrium; E53.8 Deficiency of other specified B group vitamins
CPT/HCPCS: 96365; J1756

== ENCOUNTER 2025-04-13 16:35 | Emergency (ER) | payer BC, MEDICARE, SELFPAY ==
[2025-04-13 16:40] VITALS: BP 127/74
[2025-04-13 18:31] LABS: Hematocrit 30.0 % (37.0-47.0); Hemoglobin 9.8 g/dL (12.0-16.0); Mean Corp Hgb Conc. 32.7 g/dL (33.0-37.0); Mean Corpuscular Volume 86.0 fL (81.0-99.0); Nucleated Red Blood Cells % 0 %; Platelet Count 187 10^3/uL (130-400); Red Cell Dist. Width 16.4 % (11.5-14.5)
--- NOTE | 2025-04-13 21:55 | ED.GENMED ---
History of Present Illness
General
Chief Complaint: Nasal Problem
Source: patient
Exam Limitations: none
Time Seen by Provider: 04/13/25 18:04
Nursing documentation reviewed up to this point in time: agreed with
History of Present Illness
History of Present Illness:
Patient to ED with report of nose bleed. Bleeding started this afternoon. SHe has history of nose bleeds. Has followed with ENT in the past. 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 States she was told that she would need surgery in the
future to assess and cauterize bleeding sites. Brought self to ED. No active bleeding.
Past History
Past History
ED Past Medical History: HTN, NIDDM and Other (Frequent epistaxis)
ED Past Surgical History: Gynecological, Orthopedic and Other (Gastric bypass 2016)
Social History
Tobacco: Non-smoker
Alcohol: None
Drug: None
Personal: Other (Noncontributory)
Living: with family
Employment: Employed
Family History
Family History: Other
Review of Systems
Review of Systems
Allergies reviewed?: Yes
All Other Systems: ROS reviewed and negative except as documented in HPI and ROS
Constitutional: Reports no symptoms
EENT: Reports other (epistaxis [employer])
Respiratory: Reports no symptoms
Cardiac: Reports no symptoms
ABD/GI: Reports no symptoms
: Reports no symptoms
Musculoskeletal: Reports no symptoms
Skin: Reports no symptoms
Neurological: Reports no symptoms
Psychiatric: Reports no symptoms
Phy Exam
General Physical Exam
General Presentation: well appearing and no apparent distress
General age: appears stated age
General Skin: warm and dry
General Habitus: normal
ENT Exam
ENT Exam: other (NO active nasal bleeding noted.)
Musculoskeletal Exam
Musculoskeletal Exam: full ROM and neuro vasc intact
Skin Exam
Skin Exam: normal color, warm/dry and no rash
Psychiatric Exam
Psychiatric Exam: normal mood/affect
Course
Orders/Labs/Results
Orders:
Orders
04/13/25 18:25
Complete Blood Count/With Diff Urgent
Abnormal Lab Results
04/13/25
18:25
RBC 3.49 L 10^6/uL
(4.20-5.40)
Hgb 9.8 L g/dL
(12.0-16.0)
Hct 30.0 L %
(37.0-47.0)
MCHC 32.7 L g/dL
(33.0-37.0)
RDW 16.4 H %
(11.5-14.5)
Abs Immat Gran (auto) 0.1 H 10^3/uL
(0-0.05)
Absolute Neuts (auto) 9.3 H 10^3/uL
(1.4-6.5)
Absolute Lymphs (auto) 0.8 L 10^3/uL
(1.2-3.4)
Immature Gran % 0.6 H %
(0-0.5)
Neutrophils % 86.5 H %
(42.2-75.2)
Lymphocytes % 7.6 L %
(20.5-51.1)
04/13/25 18:25
Vital Signs
Initial and Last Documented VS:
Initial Vital Signs
Temp Pulse Resp BP Pulse Ox
97.8 F 82 18 127/74 97
04/13/25 16:40 04/13/25 16:40 04/13/25 16:40 04/13/25 16:40 04/13/25 16:40
Last Documented Vital Signs
Temp Pulse Resp BP Pulse Ox
97.8 F 82 18 127/74 97
04/13/25 16:40 04/13/25 16:40 04/13/25 16:40 04/13/25 16:40 04/13/25 16:40
*Pulse Oximetry
SaO2: 97
Oxygen Mode of Delivery: Room air
Patient hypoxic: no
*Critical Care Note
Total Time (30-74mins, 75-104mins- exclusive of procedures): Not Applicable
Update Note
Update Note:
Patient to ED for eval of epistaxis. Bleeding occurred earlier today. No active bleeding noted on exam. Hgb stable. Will discharge home and she will call ENT in AM to schedule appointment. given instructions on s/s to return to ED and she is
agreeable to plan.
ED Attending Note
-
Portions of this chart may have been created with voice recognition software.� Occasional wrong word or��sound alike� substitutions may have occurred due to the inherent limitations of voice recognition software.
Discharge Plan
Departure
Patient Disposition: Home (Routine Discharge)
Date of Disposition: 04/13/25
Time of Disposition: 18:46
Patient with high blood pressure during this ER visit?: No
Condition: Good
Covid-19: Not Applicable
Discharge Problem:
Epistaxis
Instructions: Nosebleeds (DC)
Prescriptions:
No Action
multivitamin 1 EACH tablet
1 ea PO HS
omeprazole 40 MG capsule,delayed release(DR/EC)
40 mg PO DAILY PRN (Reason: heartburn)
hydrochlorothiazide 25 MG tablet
25 mg PO HS
lisinopril 40 MG tablet
10 mg PO HS
temazepam 22.5 MG capsule
22.5 mg PO HS
ergocalciferol (vitamin D2) 50 MCG tablet
50 mcg PO WEEKLY
Patient Comments:
TAKES ON THURSDAY
Citalopram Hydrobromide
40 mg PO HS
Loratadine
10 mg PO HS
Saline Nasal 50 SPRAYS/45 ML aerosol,spray
2 sprays intranasal QIDPRN PRN (Reason: Dryness) Qty: 1 1RF
[place] Saline Gel [place],Non-Aerosol
1 spray INTRANASAL DAILY
diphenhydramine-acetaminophen [Tylenol PM Extra Strength] 25-500 mg Tablet
1 tab PO HS PRN (Reason: SLEEP)
Referrals:
Marleen Meneses MD [Family Provider, Family Practice]
Burke Murillo MD [Active, Otology] - Tomorrow
Stand Alone Forms: Return to Work
Interventions
Interventions:
*Risk Screen - Suicide Last Done: 04/13/25 16:40
*General Assessment Last Done: 04/13/25 16:40
*Neglect/Abuse Screening Last Done: 04/13/25 16:40
*ED- Fall Risk Assessment Last Done: 04/13/25 18:05
*ED COVID-19 Vaccine History Last Done: 04/13/25 16:40
*ED Influenza Vaccine History Last Done: 04/13/25 16:40
*Nursing Disposition Last Done: 04/13/25 18:56
ED-EENT Assessment Last Done: 04/13/25 18:05
Discharge Date and Time
Discharge Date/Time: 04/13/25 18:56
Print Language: FILIPINO
== END 2025-04-13 18:56 | disposition home or self-care (01) ==
LOC: EMR 16:35
PROVIDERS: Nurse Practitioner; EMERGENCY PHYSICIAN Emergency Medicine; FAMILY PHYSICIAN Family Medicine
DX: R04.0 Epistaxis (principal); E11.9 Type 2 diabetes mellitus without complications; I10 Essential (primary) hypertension; Z98.84 Bariatric surgery status
CPT/HCPCS: 99283; 85025

== ENCOUNTER → 2025-05-04 16:34 | Outpatient (REF) | payer BC, MEDICARE, SELFPAY ==
[2025-05-04 17:19] LABS: Hematocrit 26.6 % (37.0-47.0); Hemoglobin 8.2 g/dL (12.0-16.0); Mean Corp Hgb Conc. 30.8 g/dL (33.0-37.0); Mean Corpuscular Volume 93.0 fL (81.0-99.0); Nucleated Red Blood Cells % 0 %; Platelet Count 176 10^3/uL (130-400); Red Cell Dist. Width 15.7 % (11.5-14.5)
[2025-05-04 17:45] LABS: Iron 26 ug/dl (37-170)
[2025-05-04 17:54] LABS: Total Iron Binding Capacity 352 ug/dl (265-497)
[2025-05-04 18:22] LABS: Ferritin 25.2 ng/ml (11.1-264.0)
[2025-05-04 18:54] LABS: Folate 8.2 ng/ml (2.76-20); Vitamin B12 320 pg/ml (239-931)
== END ==
LOC: REG 16:34
PROVIDERS: ATTENDING PHYSICIAN Obstetrics & Gynecology Gynecologic Oncology; FAMILY PHYSICIAN Family Medicine; OTHER PHYSICIAN Internal Medicine
DX: D50.9 Iron deficiency anemia, unspecified (principal); D64.9 Anemia, unspecified; E53.8 Deficiency of other specified B group vitamins; C54.1 Malignant neoplasm of endometrium
CPT/HCPCS: 36415; 82607; 82728; 82746; 82784; 83516; 83540; 83550; 85025; 86231

== ENCOUNTER 2025-07-05 11:15 | Outpatient (RCR) | payer BC, MEDICARE, SELFPAY ==
[2025-06-08 10:58] VITALS: BP 185/81
[2025-06-08] MEDS: VENOFER 110 MG IV (11:14)
[2025-06-08 11:20] VITALS: BP 170/75
[2025-06-08 12:34] VITALS: BP 157/63
[2025-06-14] MEDS: VENOFER 110 MG IV (11:06)
[2025-06-14 11:11] VITALS: BP 154/81
[2025-06-21 11:17] LABS: Hematocrit 33.9 % (37.0-47.0); Hemoglobin 10.6 g/dL (12.0-16.0); Mean Corp Hgb Conc. 31.3 g/dL (33.0-37.0); Mean Corpuscular Volume 88.7 fL (81.0-99.0); Platelet Count 183 10^3/uL (130-400); Red Cell Dist. Width 15.8 % (11.5-14.5)
[2025-06-21] MEDS: VENOFER 110 MG IV (11:22)
[2025-06-21 11:30] VITALS: BP 152/66
[2025-06-21 12:30] VITALS: BP 154/64
[2025-06-27 14:00] VITALS: BP 184/81
[2025-06-27] MEDS: VENOFER 110 MG IV (14:27)
[2025-06-27 15:34] VITALS: BP 184/75
[2025-07-05] MEDS: VENOFER 110 MG IV (11:36)
[2025-07-05 11:46] VITALS: BP 104/88
[2025-07-05 12:40] VITALS: BP 126/62
== END 2025-07-05 23:59 | disposition home or self-care (01) ==
LOC: OID 11:15
PROVIDERS: Internal Medicine Hematology & Oncology; ATTENDING PHYSICIAN Obstetrics & Gynecology Gynecologic Oncology; FAMILY PHYSICIAN Family Medicine
DX: D50.9 Iron deficiency anemia, unspecified (principal); C54.1 Malignant neoplasm of endometrium; E53.8 Deficiency of other specified B group vitamins
CPT/HCPCS: 85025; 96365; J1756